=== PATIENT | male | born 1950 | race Caucasian/White ===

== ENCOUNTER 2024-12-26 13:08 | Outpatient (CLI) | payer MEDICARE, SELFPAY ==
--- OUTSIDE RECORDS SUMMARY | 2024-12-26 13:11 | XMS_ITS | Clinical Summary ---
Author Organization [facility] Address [address] [place] [address] Care Team Providers Care Strawhat Inspector And Packer Name Role Phone Sudhir Frazier MD Primary Care Provider + Allergies No known active allergies Medications methylPREDNISolone (MEDROL) 4 mg tablet Take 4 mg by mouth daily as needed Active atorvastatin (LIPITOR) 40 mg tablet Take 40 mg by mouth daily Active celecoxib (CeleBREX) 200 mg capsule Take 200 mg by mouth 2 (two) times a day Active traMADol (ULTRAM) 50 mg tablet Take 50 mg by mouth every 6 (six) hours as needed for pain Active carvedilol (COREG) 25 mg tablet Take 25 mg by mouth 2 (two) times a day with meals Active glimepiride (AMARYL) 4 mg tabletIndications: type 2 diabetes mellitus Take 4 mg by mouth 2 (two) times a day before breakfast and dinner Active losartan (COZAAR) 50 mg tablet Take 50 mg by mouth daily Active isosorbide mononitrate ER (IMDUR) 30 mg 24 hr tablet Take 30 mg by mouth nightly Active metFORMIN (GLUCOPHAGE) 500 mg tablet Take 500 mg by mouth 2 (two) times a day with meals Active Ozempic 0.25 mg or 0.5 mg(2 mg/1.5 mL) pen injector Inject 0.5 mg under the skin once a week Tuesday08/29/19 21 Active ergocalciferol (VITAMIN D) 50,000 unit capsule Take 50,000 Units by mouth once a week Tuesday10/09/19 21 Active vitamin E (vitamin E) 400 unit capsule Take 400 Units by mouth daily Active docosahexaenoic acid/epa (FISH OIL ORAL)Indications:f or omega-3's Take 1,200 mg by mouth 2 (two) times a day Active FIBER, DEXTRIN, ORAL Take 2 tablets by mouth 2 (two) times a day Active HYDROcodone-acetam inophen (NORCO) 5-325 mg per tabletIndications: Pain Take 1-2 tablets every 4-6 hours as needed for pain 50 tablet 10/31/19 21 Active Additional Information Patient not taking.Reported on 01/29/2021 cyclobenzaprine (FLEXERIL) 10 mg tablet Take 1 tablet (10 mg total) by mouth 3 (three) times a day as needed for muscle spasms 40 tablet 10/31/19 21 Active Additional Information Patient not taking.Reported on 01/29/2021 vitamins-lipotropi cs tabletIndications: ear ringing Take 1,000 mg by mouth 2 (two) times a day. Indications: ear ringing Active docusate sodium (COLACE) 250 mg capsuleIndications :constipation Take 250 mg by mouth daily. Take daily with narcotic. Indications: constipation Active aspirin 325 mg tabletIndications: prevention of thrombosis Take 325 mg by mouth 2 (two) times a day. Indications: prevention of thrombosis Active acetaminophen (Tylenol Extra Strength) 500 mg tabletIndications: Pain Take 500 mg by mouth every 6 (six) hours as needed for pain. Indications: pain Active silver sulfadiazine (SILVADENE, SSD) 1 % cream Apply topically daily 85 g 12/16/19 21 Active gauze bandage 4 X 4 sponge Apply 1 application topically daily 50 each 12/16/19 21 Active meclizine (ANTIVERT) 25 mg tablet TAKE 2 TABLETS BY MOUTH EVERY 12 HOURS NEEDED FOR VERTIGO 01/25/20 21 Active ondansetron ODT (ZOFRAN-ODT) 4 mg disintegrating tablet DISSOLVE 1 TABLET ON THE TONGUE EVERY 6 TO 8 HOURS NEEDED FOR NAUSEA OR VOMITING 01/25/20 21 Active valACYclovir (VALTREX) 1 gram tablet Take 1 tablet (1,000 mg total) by mouth 3 (three) times a day 21 tablet 07/10/20 22 Active amoxicillin (AMOXIL) 500 mg tablet/capsuleIndi cations:Prophylaxi s, Medical Take 4 tablet/capsule (2,000 mg total) by mouth once as needed (take 1 hour prior to dental procedure) for up to 1 dose 4 tablet/caps ule 02/03/20 23 Active acetaminophen-code ine (TYLENOL with CODEINE #4) 300-60 mg per tabletIndications: Strain of calf muscle, left, initial encounter,Osteoart hritis of left knee, unspecified osteoarthritis type Take 1 tablet by mouth every 6 (six) hours as needed for pain Take 1/2-1 tablet every 6-8 hours with food p.r.n. pain. Collaborating physician Reji Crawford MD 20 tablet 06/12/20 24 Active diclofenac sodium (VOLTAREN) 1 % gelIndications:Str ain of calf muscle, left, initial encounter,Osteoart hritis of left knee, unspecified osteoarthritis type Apply 2-4 g topically 4 (four) times a day Massage into area of maximal intensity pain 3-4 times daily as directed. Collaborating physician Reji Crawford MD 200 g 1 06/12/20 24 Active Active Problems Problem Noted Date Diagnosed Date Strain of calf muscle 06/12/2024 Osteoarthritis of left knee 06/12/2024 Hypertension 11/12/2020 Arthritis 10/28/2020 Primary osteoarthritis of knees, bilateral 10/20 Screening for malignant neoplasm of colon 2018 Overview (07/30/2019): Added automatically from request for surgery [id number] Cardiovascular symptoms 03/14/2014 Diabetes mellitus, type II 03/14/2014 Overview (11/12/2020): Dx updated per 2018 IMO Load Hypercholesterolemia 03/14/2014 Dyspnea on exertion 03/14/2014 Arteriosclerosis of coronary artery 10/19/2012 Morbid obesity 10/19/2012 Angina at rest 08/30/2012 Diabetic polyneuropathy 04/12/2012 Overview (11/12/2020): Dx updated per 2018 IMO Load Ingrowing nail 04/12/2012 Encounters Date Type Department Care Team Description 11/02/2024 [facility] E[facility] [address] [facility] [address] [place] [address] [place] [address] G[place]iola, Paula, [place] from Last 3 Months Immunizations Immunization Administration Dates Next Due PPD TEST 10/22/2022 Surgical History Surgery Date Site/Laterality Comments COLONOSCOPY 03/08/2010 - 04/07/2010 LUMBAR DISCECTOMY CATARACT EXTRACTION W/ INTRAOCULAR LENS IMPLANT Bilateral JOINT REPLACEMENT KNEE SURGERY 10/28/2020 Right Right total Knee Medical History Medical History Date Comments Coronary artery disease Hypertension Type 2 diabetes mellitus (HCC) Arthritis Sleep apnea Tachycardia Family History Medical History Relation Name Comments Heart disease Father Cancer Mother Relation Name Status Comments Father Mother Social History Tobacco Use Types Packs/Day Years Used Date Smoking Tobacco: Never Smokeless Tobacco: Never Social Connection and Isolat ion Panel [NHANES] Answer Date Recorded In a typical week, how many times do you talk on the phone with family, friends, or neighbors? More than three times a week 10/29/2020 How often do you get togethe r with friends or relatives? More than three times a week 10/29/2020 How often do you attend chur or jainism services? More than 4 times per year 10/29/2020 Do you belong to any clubs o r organizations such as rastafarian groups, unions, fraternal or athletic groups, or school groups? No 10/29/2020 How often do you attend meet ings of the clubs or organizations you belong to? Never 10/29/2020 Are you , , di vorced, , never , or living with a partner? 10/29/2020 AUDIT-C Answer Date Recorded Q1: How often do you have a drink containing alc ohol? Monthly or less 10/28/2020 Q2: How many drinks containi ng alcohol do you have on a typical day when you are drinking? 1 or 2 10/28/2020 Q3: How often do you have si x or more drinks on one occasion? Never 10/28/2020 Overall Financial Resource Strain (CARDIA) Answe r Date Recorded How hard is it for you to pa y for the very basics like food, housing, medical care, and heating? Not hard at all 10/29/2020 Hunger Vital Sign Answer Date Recorded Within the past 12 months, y ou worried that your food would run out before you got the money to buy more. Never true 10/30/19 21 Within the past 12 months, t he food you bought just didn't last and you didn't have money to get more. Never true 10/29/2020 PRAPARE - Transportation Answer Date Re corded In the past 12 months, has l ack of transportation kept you from medical appointments or from getting medications? No 10/07 In the past 12 months, has l ack of transportation kept you from meetings, work, or from getting things needed for daily living? No 10/29/2020 Housing Stability Vital Sign Answer Javier e Recorded In the last 12 months, was t here a time when you were not able to pay the mortgage or rent on time? No 10/29/2020 Number of Places Lived in the Last Year Not on f ile 10/29/2020 In the last 12 months, was t here a time when you did not have a steady place to sleep or slept in a long-term (including now)? No 10/29/2020 Personal Safety Answer Date Recorded Have you ever been in or are you currently in a harmful physical or emotional relationship or is someone making you feel afraid or unsafe? Denies 06/12/2024 Sex and Gender Information Value Date Recorded Sex Assigned at Not on file Legal Sex Male 9:09 AM RECEPTION MANAGER Gender Identity Male 10/17/2020 4:40 PM RECEPTION MANAGER Sexual Orientation Not on file Obstetrics History Last Filed Vital Signs Vital Sign Reading Time Taken Comments Blood Pressure 148/66 06/12/2024 11:00 AM RECEPTION MANAGER Pulse 65 06/12/2024 11:00 AM RECEPTION MANAGER Temperature 36.3 C (97.4 F) 06/12/2024 11:00 AM RECEPTION MANAGER Respiratory Rate 18 06/12/2024 11:00 AM RECEPTION MANAGER Oxygen Saturation 98% 06/12/2024 11:00 AM RECEPTION MANAGER Inhaled Oxygen Concentration - - Weight 113.4 kg (250 lb) 06/12/2024 11:00 AM RECEPTION MANAGER Height 190.5 cm (6' 3 ) 06/12/2024 11:00 AM RECEPTION MANAGER Body Mass Index 31.25 06/12/2024 11:00 AM RECEPTION MANAGER Plan of Treatment Health Maintenance Due Date Last Done Comments Albumin Creatinine Ratio, Urine 1950 Depression Screening 1950 Hepatitis C Screening 1950 Dilated Eye Exam 1950 Foot Exam 1950 Lipid Panel 1950 DTaP/Tdap/Td Vaccine (1 - Tdap) 1961 Hepatitis B Screening 1968 Zoster Vaccine (1 of 2) 2000 Well Visit 65+ 2015 Pneumococcal vaccine 65+ (2 of 2 - PCV) 04/30/2019 04/30/2018 Hemoglobin A1C 04/24/2021 10/22/2020 eGFR 10/22/2021 10/22/2020 Fall Risk Assessment 10/30/2021 10/30/2020 Influenza Vaccine (#1) 2024 0, 05/30/2019, 04/30/2018, Additional history exists Colon Cancer Screening-Colonoscopy 08/17/2029 08/17/2019 Colon Cancer Screening-CT Colonography Discontinued 08/17/2019 Colon Cancer Screening-DNA Stool Discontinued 08/17/19 Colon Cancer Screening-FIT Discontinued 08/17/2019 Colon Cancer Screening-Sigmoidoscopy Discontinued 08/17/2019 Medical Devices Implanted Type Area Multi Operation Machine Operator Device Identifier Shelf Expiration Date Model / Serial / Lot [employer] [id number] [place] R High Viscosity Cement 40gm Bone Green - [id number] Implanted:Qty: 2 on 10/28/2020 by Stanton Multani Jr., MD at [facility] Right: Knee [employer] [id number] 11/05/2022 [id number] / / [id number] [employer] [id number] Attune 5mm Cruciate Retaining Fix Bearing Knee 6 Insert Tibial - [id number] Implanted:Qty: 1 on 10/28/2020 by Stanton Multani Jr., MD at [facility] Right: Knee [employer] [id number] 10/05/2022 [id number] / / [id number] [employer] [id number] Attune 38mm Cemented Medialize Knee Dome Patellar Aox Sterile - [id number] Implanted:Qty: 1 on 10/28/2020 by Stanton Multani Jr., MD at [facility] Right: Knee [employer] [id number] 03/07/2025 [id number] / / [id number] [employer] [id number] Attune Cruciate Retain Cementless Knee Right 6 Component Femoral - [id number] Implanted:Qty: 1 on 10/28/2020 by Stanton Multani Jr., MD at [facility] Right: Knee [employer] [id number] 06/07/2029 [id number] / / [id number] [employer] [id number] Attune S+ Cement Fix Bearing Knee 7 Baseplate Tibial - [id number] Implanted:Qty: 1 on 10/28/2020 by Stanton Multani Jr., MD at [facility] Right: Knee [employer] [id number] 02/05/2028 [id number] / / [id number] Procedures Procedure Name Priority Date/Time Associated Diagnosis Comments EGFR Routine 10/22/2020 11:29 AM CDT Primary osteoarthritis of knees, bilateral HEMOGLOBIN A1C Routine 10/22/2020 11:29 AM CDT Preop testing COLONOSCOPY 08/17/2019 8:27 AM RECEPTION MANAGER from Last 3 Months or Most Recently Relevant to Health Maintenance Results * eGFR (10/22/2020 11:29 AM CDT) eGFR 98 mL/min/1.7 3 m2 MARIAH EMANUEL Comment: Interpretive Data Reference Interval Normal >/= 90 mL/min/1.73m2 Mildly decreased* 60 - 89 mL/min/1.73m2 Mildly to moderately decreased 45 - 59 mL/min/1.73m2 Moderately to severely decreased 30 - 44 mL/min/1.73m2 Severely decreased 15 - 29 mL/min/1.73m2 Kidney Failure < 15 mL/min/1.73m2 *Relative to young adult level Estimated glomerular filtration rate is determined by the CKD-EPI equation recommended by the National Kidney Foundation (KDIGO 2012 Clinical Practice Guideline for the Evaluation and Management of Chronic Kidney Disease. Kidney Intnl Suppl Aug 2012;3:1). The CKD-EPI equation should not be used for patients with unstable renal function and has not been validated in children and those over 70. Current interpretive data was last reviewed 2020 Blood specimen (specimen) 10/22/2020 11:29 AM CDT 10/22/2020 11:46 AM CDT us Leroy Ritter MD LAB BLOOD ORDERABLES Final Result Performing Organization Address [facility] Co de Phone Number MARIAH EMANUEL [phone] [address] [facility] [place] [address] * (ABNORMAL) Hemoglobin A1c (10/22/2020 11:29 AM CDT) Hgb A1C 6.2(H) 4.0 - 5.6 % MARIAH EMANUEL Estimated Average Glucose 131 mg/dL MARIAH EMANUEL Comment: The ADA recommends reporting an estimated Average Glucose (eAG) with all Hemoglobin A1c results using the equation derived from a study of 507 normal and diabetic adults. Minority populations were underrepresented and children were not included. (Diabetes Care 31:3666-0374, 2008). The eAG is not equivalent to a fasting glucose. Blood specimen (specimen) 10/22/2020 11:29 AM CDT 10/22/2020 11:37 AM CDT us Stanton Multani Jr., MD LAB BLOOD ORDERABLE S Final Result Performing Organization Address [facility] Co de Phone Number MARIAH EMANUEL [phone] [address] [facility] [place] [address] * COLONOSCOPY (08/17/2019 8:27 AM RECEPTION MANAGER) Anatomical Region Laterality Modality Other Narrative Procedure Note Reji Bradley MD - 08/17/2019 8:27 AM CST [facility] Patient Name: Julian Schuler Procedure Date: 08/17/2019 8:27 AM Date of : 1950 Admit Type: Outpatient Age: 69 Gender: Male Attending MD: Reji Bradley M.D. [facility] 2 Note Status: Finalized Patient Profile: Refer to note in patient chart for documentation of history and physical. Procedure: Colonoscopy Indications: Screening for colorectal malignant neoplasm, Last colonoscopy: March 2010 Referring MD: Sudhir Frazier M.D. Providers: Reji Bradley M.D. Impression: - Hemorrhoids found on perianal exam. - One 5 mm polyp in the rectum, removed with a hot biopsy forceps. Resected and retrieved. - Two 5 to 9 mm polyps in the sigmoid colon, removed with a hot biopsy forceps. Resected and retrieved. - Diverticulosis in the sigmoid colon. - The examination was otherwise normal. Recommendation: - Discharge patient to home. - Resume previous diet. - Continue present medications. - Await pathology results. - Repeat colonoscopy in 5 years for surveillance. - Return to primary care physician as previously scheduled. Medicines: Propofol per Anesthesia Complications: No immediate complications. Estimated Blood Loss: Estimated blood loss: none. Procedure: Pre-Anesthesia Assessment: - This assessment was completed [Time of Assessment] prior to the administration of sedation. The benefits, risks and alternatives of theprocedure and sedation were discussed and informed consent was obtained. All questions were answered. Please referto the signed informed consent document in the medical record. Bowel prep was administered using a single dose. The bowel preparation used was Miralax. Thebowel preparation used was bisacodyl tablets. The scopewas passed under direct vision. The [id number] was introduced through the anus andadvanced to the the cecum, identified by appendiceal orificeand ileocecal valve. The colonoscopy was performedwithout difficulty. The patient tolerated the procedurewell. The quality of the bowel preparation was good. Findings: Hemorrhoids were found on perianal exam. A 5 mm polyp was found in the rectum. The polyp was sessile. Thepolyp was removed with a hot biopsy forceps. Resection and retrieval were complete. Verification of patient identification for the specimen was done by the physician and nurse using the patient's name and birthdate. Estimated blood loss was minimal. Two sessile polyps were found in the sigmoid colon. The polyps were 5to 9 mm in size. These polyps were removed with a hot biopsy forceps. Resection and retrieval were complete. Verification of patient identification for the specimen was done by the physician and nurse using the patient's name and date. Estimated blood loss was minimal. Multiple small-mouthed diverticula were found in the sigmoid colon. The exam was otherwise without abnormality. Electronically signed by Reji Bradley M.D. Reji Bradley M.D. 08/17/2019 9:34:24 AM Number of Addenda: 0 Note Initiated On: 08/17/2019 8:27 AM Procedure Code(s): --- Professional --- 17881, Colonoscopy, flexible; with removal of tumor(s), polyp(s), or other lesion(s) by hot biopsy forceps Diagnosis Code(s): --- Professional --- K57.30, Diverticulosis of large intestine without perforation orabscess without bleeding D12.5, Benign neoplasm of sigmoid colon K62.1, Rectal polyp K64.9, Unspecified hemorrhoids Z12.11, Encounter for screening for malignant neoplasm of colon CPT copyright 2017 [employer]. All rights reserved. The codes documented in this report are preliminary and upon pool lifeguard reviewmay be revised to meet current compliance requirements. Recognized by the [employer] for promoting quality in endoscopy us Reji Bradley MD ENDOSCOPY PROCEDURES Final Re sult from Last 3 Months or Most Recently Relevant to Health Maintenance Insurance MEDICARE COMMERCIAL GENERIC MEDICARE COMMERCIAL GENERIC MEDICARE MEDICARE [facility] Advance Directives For more information, please contact: [phone] * Full Code (Latest Code Status on File) Date Activated Date Inactivated Comments 10/28/2020 3:22 PM 10/30/2020 8:05 PM * Full Code Date Activated Date Inactivated Comments 08/17/2019 7:57 AM 08/17/2019 2:34 PM * Full Code Date Activated Date Inactivated Comments 08/17/2019 7:57 AM 08/17/2019 7:57 AM Care Teams Strawhat Inspector And Packer Relationship Specialty [place] [address] [facility] [place] [address] PCP - General 10/08/16
--- OUTSIDE RECORDS SUMMARY | 2024-12-26 13:11 | XMS_ITS | Referral Summary ---
Author Organization [facility] Address [address] [place] [address] Care Team Providers Care Band Lining Bander Name Role Phone Sudhir Frazier MD Primary Care Provider + Encounters Date Type Department Care Team Description 11/02/2024 Telephone [facility]) - [facility] ENT [address] [facility] [address] [place] [address] [place] [address] Paula Gaxiola MS from Last 3 Months Allergies No known active allergies Medications methylPREDNISolone [...] needed for muscle spasms 40 tablet 10/31/19 Active Additional Information Patient not taking.Reported on [...] (07/30/2019): Added automatically from request for surgery [id number] Cardiovascular symptoms 03/14/2014 Diabetes mellitus, type II 03/14/2014 Overview (11/12/2020): Dx updated per 2018 IMO Load Hypercholesterolemia 03/14/2014 Dyspnea on exertion 03/14/2014 Arteriosclerosis of coronary artery 10/19/2012 Morbid obesity 10/19/2012 Angina at rest 08/30/2012 Diabetic polyneuropathy 04/12/2012 Overview (11/12/2020): Dx updated per 2018 IMO Load Ingrowing nail 04/12/2012 Immunizations Immunization Administration Dates Next Due PPD TEST 10/22/2022 Social History Tobacco Use Types Packs/Day Years [...] 10/29/2020 How often do you attend chur ch or samaritan services? More than 4 times per year 10/29/2020 Do you belong to any clubs o r organizations such as hinduism groups, unions, fraternal or athletic groups, or [...] place to sleep or slept in a care home (including now)? No 10/29/2020 Personal Safety Answer Date Recorded Have you ever been in or are you currently in a harmful physical or emotional relationship or is someone making you feel afraid or unsafe? Denies 06/12/2024 Sex and Gender Information Value Date Recorded Sex Assigned at Not on file Legal Sex Male 9:09 AM ROLL PLUGGER Gender Identity Male 10/17/2020 4:40 PM ROLL PLUGGER Sexual Orientation Not on file Last Filed Vital Signs Vital Sign Reading Time Taken Comments Blood Pressure 148/66 06/12/2024 11:00 AM ROLL PLUGGER Pulse 65 06/12/2024 11:00 AM ROLL PLUGGER Temperature 36.3 C (97.4 F) 06/12/2024 11:00 AM ROLL PLUGGER Respiratory Rate 18 06/12/2024 11:00 AM ROLL PLUGGER Oxygen Saturation 98% 06/12/2024 11:00 AM ROLL PLUGGER Inhaled Oxygen Concentration - - Weight 113.4 kg (250 lb) 06/12/2024 11:00 AM ROLL PLUGGER Height 190.5 cm (6' 3 ) 06/12/2024 11:00 AM ROLL PLUGGER Body Mass Index 31.25 06/12/2024 11:00 AM ROLL PLUGGER Plan of Treatment Not on file Medical Devices Implanted Type Area Director Of Diversity And Inclusion Device Identifier Shelf Expiration Date Model / Serial / Lot [employer] [id number] [place] R High Viscosity Cement 40gm Bone Green - [id number] Implanted:Qty: 2 on 10/28/2020 by Stanton Multani Jr., MD at [facility] Right: Knee [employer] [id number] 11/05/2022 [id number] / / [id number] [employer] [id number] Attune 5mm Cruciate Retaining Fix Bearing Knee 6 Insert Tibial - [id number] Implanted:Qty: 1 on 10/28/2020 by Stanton Multani Jr., MD at [facility] Right: Knee [employer] [id number] 10/05/2022 [id number] / / [id number] [employer] [id number] Attune 38mm Cemented Medialize Knee Dome Patellar Aox Sterile - [id number] Implanted:Qty: 1 on 10/28/2020 by Stanton Multani Jr., MD at [facility] Right: Knee [employer] [id number] 03/07/2025 [id number] / / [id number] [employer] [id number] Attune Cruciate Retain Cementless Knee Right 6 Component Femoral - [id number] Implanted:Qty: 1 on 10/28/2020 by Stnaton Multani Jr., MD at [facility] Right: Knee [employer] [id number] 06/07/2029 [id number] / / [id number] [employer] [id number] Attune S+ Cement Fix Bearing Knee 7 Baseplate Tibial - [id number] Implanted:Qty: 1 on 10/28/2020 by Stanton Multani Jr., MD at [facility] Right: Knee [employer] [id number] 02/05/2028 [id number] / / [id number] Procedures Procedure Name Priority Date/Time Associated Diagnosis Comments EGFR Routine 10/22/2020 11:29 AM CDT Primary osteoarthritis of knees, bilateral HEMOGLOBIN A1C Routine 10/22/2020 11:29 AM CDT Preop testing COLONOSCOPY 08/17/2019 8:27 AM ROLL PLUGGER from Last 3 Months or Most Recently [...] BLOOD ORDERABLES Final Result Performing Organization Address [facility] Co de Phone Number MARIAH ADELFO [address] [place] [address] * (ABNORMAL) Hemoglobin A1c (10/22/2020 11:29 AM CDT) Hgb A1C 6.2(H) 4.0 - 5.6 % MARIAH EMANUEL Estimated Average Glucose 131 mg/dL MARIAH EMANUEL Comment: The ADA recommends reporting an estimated Average Glucose (eAG) with all Hemoglobin A1c results using the equation derived from a study of 507 normal and diabetic adults. Minority populations were underrepresented and children were not included. (Diabetes Care 31:2789-1746, 2008). The eAG is not equivalent to a fasting glucose. Blood specimen (specimen) 10/22/2020 11:29 AM CDT 10/22/2020 11:37 AM CDT us Stanton Multani Jr., MD LAB BLOOD ORDERABLE S Final Result Performing Organization Address [facility] Co de Phone Number MARIAH EMANUEL [address] [facility] [place] [address] * COLONOSCOPY (08/17/2019 8:27 AM ROLL PLUGGER) Anatomical Region Laterality Modality Other Narrative Procedure Note Reji Bradley MD - 08/17/2019 8:27 AM CST [facility] Patient Name: Julian Schuler Procedure Date: 08/17/2019 8:27 AM Date of : 1950 Admit Type: Outpatient Age: 69 Gender: Male Attending MD: Reji Bradley M.D. Room: [facility] ENDOSCOPY ROOM 2 Note Status: Finalized Patient [...] The scopewas passed under direct vision. The [id number] was introduced through the anus andadvanced to [...] 8:27 AM Procedure Code(s): --- Professional --- 64472, Colonoscopy, flexible; with removal of tumor(s), polyp(s), or other lesion(s) by hot biopsy forceps Diagnosis Code(s): --- Professional --- K57.30, Diverticulosis of large intestine without perforation orabscess without bleeding D12.5, Benign neoplasm of sigmoid colon K62.1, Rectal polyp K64.9, Unspecified hemorrhoids Z12.11, Encounter for screening for malignant neoplasm of colon CPT copyright 2017 [employer]. All rights reserved. The codes documented in this report are preliminary and upon paper counter reviewmay be revised to meet current compliance requirements. Recognized by the [employer] for promoting quality in endoscopy Reji Bradley MD ENDOSCOPY PROCEDURES Final Re sult from Last 3 Months or Most Recently Relevant to Health Maintenance Insurance MEDICARE COMMERCIAL [facility] MEDICARE COMMERCIAL GENERIC COMMERCIAL GENERIC MEDICARE MEDICARE [employer] Advance Directives For more information, please contact: [phone] * Full Code (Latest Code Status on File) Date Activated Date Inactivated Comments 10/28/2020 3:22 PM 10/30/2020 8:05 PM * Full Code Date Activated Date Inactivated Comments 08/17/2019 7:57 AM 08/17/2019 2:34 PM * Full Code Date Activated Date Inactivated Comments 08/17/2019 7:57 AM 08/17/2019 7:57 AM Care Teams Band Lining Bander Relationship Specialty [place] [address] [place] [address] PCP - General 10/08/16
--- OUTSIDE RECORDS SUMMARY | 2024-12-26 13:11 | XMS_ITS | Patient Health Record ---
Author Organization [facility] Address [address] [address] Care Team Providers Care Packing Machine Inspector Name Role Phone SHENG DOWLING Unavailable [phone] Reason For Referral No Information Plan Of Treatment No Information Insurance Providers Payer Name Payer Address Payer Phone Subscriber Number Group Number Insured Name Patient Relationship to Insured Coverage Start Date Coverage End Date [facility] [id number] [place], [place] [id number] Matt Schuler Self - patient is the insured 0
--- OUTSIDE RECORDS SUMMARY | 2024-12-26 13:11 | XMS_ITS | CONTINUITY OF CARE DOCUMENT ---
Author Name manuel, manuel Address Unknown Organization [facility] Address [address] [place] [address] Phone [phone] Care Team Providers Care Life Insurance Sales Agent Name Role Phone Katelyn EASTMAN, Angus Unavailable [phone] AIYANA SOTO MD Unavailable [phone] AIYANA SOTO MD Unavailable PROBLEMS Condition Status Date Provider Notes Family History Coronary Hear t Disease female < 65: active ? Angus Zepeda MD Family History Coronary Hear t Disease female < 65: active ? Angus Zepeda MD Family History Coronary Hear t Disease male < 55: active ? Angus Zepeda MD Other symptoms involving car diovascular system active Angus Zepeda MD Shortness of breath active Angus Zepeda MD Dyspnea on exertion active Angus Zepeda MD CAD active Angus Zepeda MD Diabetes mellitus active Angus Zepeda MD Hyperlipidemia active Angus Zepeda MD Diabetes, Type 2 active ? Angus Zepeda MD Hyperlipidemia active ? Angus Zepeda MD Hypertension active ? Angus Zepeda MD Coronary Heart Disease active Angus Zepeda MD ENCOUNTERS Date Type Provider Location Encounter Diag nosis - In-person encounter Office Visit Angus Zepeda MD [facility] - In-person encounter Office Visit Angus Zepeda MD [facility] - In-person encounter Office Visit Angus Zepeda MD [facility] HyperlipidemiaCoronary Heart Disease - In-person encounter Office Visit Angus Zepeda MD [facility] - In-person encounter Office Visit Angus Zepeda MD [facility] - In-person encounter Office Visit Angus Zepeda MD [place] [facility] - In-person encounter Office Visit Angus Zepeda MD [facility] Family History Coronary Heart Disease female < 65:Family History Coronary Heart Disease female < 65:Family History Coronary Heart Disease male < 55:Other symptoms involving cardiovascular systemShortness of breathDyspnea on exertionCADDiabetes mellitusHyperlipidemiaDiabet es, Type 2HyperlipidemiaHypertension VITAL SIGNS Date Observation Value Provider Body Mass Index (Ratio) 34.04 kg/m2 Mark Zepeda MD blood pressure, cuff size regular yang Lewis blood pressure, diastolic 80 mm[Hg] Rodrigue Lewis blood pressure, systolic 136 mm[Hg] Luis Lewis oxygen saturation, oximetry 97 % Amanda Lewis pulse rate 66 /min Amanda Clark [facility] weight E&M 258 [lb_av] Amanda Clark [facility] height E&M 73 [in_i] Amanda Clark [facility] Body Mass Index (Ratio) 37.07 kg/m2 Mark Zepeda MD blood pressure, diastolic 81 mm[Hg] An aki Castaneda blood pressure, systolic 168 mm[Hg] Ann Catsaneda oxygen saturation, oximetry 98 % Loni Castaneda pulse rate 79 /min Loni Castaneda weight E&M 281 [lb_av] Loni Castaneda blood pressure, cuff size large An aki Leonel height E&M 73 [in_i] Loni Leonel Body Mass Index (Ratio) 35.22 kg/m2 Mark Zepeda MD blood pressure, diastolic 87 mm[Hg] Tierra nkLogic blood pressure, systolic 163 mm[Hg] Lianna kLog blood pressure, diastolic 87 mm[Hg] Alena rogers [place] blood pressure, systolic 163 mm[Hg] Fernando rajan [place] oxygen saturation, oximetry 96 % Cristin Calderon pulse rate 84 /min Cristin cage weight E&M 267 [lb_av] Cristin cage respiratory rate E&M 16 /min Amanda ricardo [place] blood pressure, cuff size large Alena rogers Calderon height E&M 73 [in_i] Cristin cage Body Mass Index (Ratio) 37.33 kg/m2 Mark Zepeda MD oxygen saturation, oximetry 98 % Chastity Vidhi blood pressure, diastolic 98 mm[Hg] Ch astity Vidhi blood pressure, systolic 138 mm[Hg] Leigha stity Vidhi pulse rate 76 /min Chastity Vidhi respiratory rate E&M 16 /min Chastit y Vidhi weight E&M 283 [lb_av] Chastity Vidhi height E&M 73 [in_i] Chastity Vidhi blood pressure, diastolic 82 mm[Hg] Me kingsley Rohith blood pressure, systolic 143 mm[Hg] Lisseth silviano Rohith pulse rate 70 /min Sasha Rohith oxygen saturation, oximetry 97 % Sasha Rohith respiratory rate E&M 18 /min Sasha Rohith Body Mass Index (Ratio) 37.20 kg/m2 Paula ssa Rohith weight E&M 282 [lb_av] Sasha Newberry Body Mass Index (Ratio) 37.20 kg/m2 Anea manjit Pedrito blood pressure, diastolic 78 mm[Hg] An eatris Perdito blood pressure, systolic 142 mm[Hg] Ane atriben Major pulse rate 70 /min Aneatris Pedrito oxygen saturation, oximetry 98 % Aneatris Pedrito respiratory rate E&M 18 /min Aneatri s [facility] weight E&M 282 [lb_av] Aneatris Pedrito Body Mass Index (Ratio) 37.07 kg/m2 Ashl ee Daniel blood pressure, diastolic 74 mm[Hg] As hlee Daniel blood pressure, systolic 126 mm[Hg] Aries tiffanie Daniel pulse rate 72 /min Maureen Daniel oxygen saturation, oximetry 98 % Maureentiffanie Sanchez respiratory rate E&M 16 /min Maureen Daniel weight E&M 281 [lb_av] Maureen Daniel height E&M 73 [in_i] Maureen Sanchez ALLERGIES No Known Drug Allergies RESULTS Date Observation Value Provider Reference Range Interpretation Location platelet count 210 10*3[facility] Samuel hematocrit, blood 41.5 % [facility] triglyceride, serum, fasting 144 mg/dL [facility] HDL cholesterol, serum 40 mg/dL [facility] cholesterol/HDL ratio, serum 3.3 [facility] lipoprotein, beta, serum, point, quantitative, calculated 62 mg/dL [facility] cholesterol, serum 131 mg/dL [facility] thyroid stimulating hormone, serum 1.19 u[IU]/mL [facility] alanine aminotransferase (SGPT), serum 22 1/L [facility] aspartate aminotransferase (SGOT), serum 15 1/L Bev Baker creatinine, serum 1.00 mg/dL Bev Baker potassium, serum 4.3 mmol/L Bev Baker sodium, serum 142 mmol/L Bev Baker HISTORY OF MEDICATION USE Medication Status Instructions Dates Provider Indications Com ments Ozempic 0.25 mg or 0.5 mg(2 mg/1.5 mL) pen injector active Angus Zepeda MD glimepiride 4 mg tablet active Take 1 tablet by mouth once a day Fei Anderson DNP,SPECIAL EDUCATION SCIENCE TEACHER #180, 90 days supply, Prescribed by AIYANA SOTO, Filled 01/25/2020 celecoxib 200 mg capsule active 1 tablet twice a day Leighastity Vidhi #180, 90 days supply, Filled 03/04/2020 tramadol 50 mg tablet active as needed Leighastity Vidhi #56, 7 days supply, Filled 01/28/2020 losartan 50 mg tablet active 1 once a day Cristin Calderon atorvastatin 40 mg tablet active 1 once a day Cristin Calderon metformin 500 mg tablet active 0.5 twice a day Cristin Calderon [employer] F[employer] CAPSULE active once a day Amanda Calderon Fish Oil 300-1,000 mg capsule,delayed release(DR/EC) active once a day Cristin Calderon TRIAMCINOLONE ACETONIDE 0.1 % EXTERNAL CREAM completed as needed - Carlyn Mosher cholecalciferol (vitamin D3) 25 mcg (1,000 unit) capsule active 2 once a day Cristin Calderon IMDUR 30 MG ORAL TABLET EXTENDED RELEASE 24 HOUR active 1 every night Cristin Calderon carvedilol 25 mg tablet active twice a day Cristin Calderon aspirin 81 mg tablet,delayed release (DR/EC) completed 1 once a day - Cristin Calderon SOCIAL HISTORY Date Observation Value Provider alcohol use no Fei ARZA P,SPECIAL EDUCATION SCIENCE TEACHER passive cigarette sm umer exposure no Fei Anderson DNP,SPECIAL EDUCATION SCIENCE TEACHER smoking status Never smoker Fei Anderson DNP,[facility] alcohol use no Loni Leonel passive cigarette sm umer exposure no Loni Leonel smoking status Never smoker Loni Leonel social history E&M Marital Statu s: Jane boles: 4 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 Angus Zepeda MD seatbelt usage 100 % Cristin Stoll and passive cigarette sm umer exposure no Cristin Stolland smoking status Never smoker Cristin Stoll and social history E&M Marital Statu s: Jane obles: 4 O ccupation: Retired Smoking History: P jatin has never smoked. Angus Zepeda MD social history reviewed E&M revi ewed - no changes required Angus Zepeda MD seatbelt usage 100 % Chastity Hogu e passive cigarette sm umer exposure no Leighastveronica Antonioue smoking status Never smoker Carlyn Antoniou ricardo passive cigarette sm umer exposure no Angus Zepeda MD social history reviewed E&M revi ewed - no changes required Angus Zepeda MD seatbelt usage 100 % Sasha Rohith alcohol use no Sasha Newberry smoking status Never smoker Sasha Newberry social history reviewed E&M revi ewed - no changes required Angus Zepeda MD seatbelt usage 100 % Angus Zepeda MD alcohol use no Angus Cage social history E&M Marital Statu s: Jane boles: 4 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 Angus Zepeda MD smoking status Never smoker Maureen Sanchez FUNCTIONAL STATUS Date Observation Value Provider HRA, CV Assess/Plan, Angina (inactive) Management Plan continue current therapy Fei Anderson DNP,SPECIAL EDUCATION SCIENCE TEACHER HRA, CV Assess/Plan, Angina (inactive) Management Plan continue current therapy Angus Zepeda MD FAMILY HISTORY Family Member Condition Father [place] male <55 Mother [place] female <65 Full Brother Family History Coron desmond Heart Disease male < 55: Maternal Grandmother Family History Bear nary Heart Disease female < 65: Maternal Grandfather Family History of C oronary Artery Disease: Mother Family History Coron desmond Heart Disease female < 65: Father Family History of Co ronary Artery Disease: INSURANCE PROVIDERS Payer name Policy type / Coverage type Tracy red alliance party ID [facility] Blue Shield X [id number] OR MEDICARE PART B Medicare [id number] ADVANCE DIRECTIVES Name Date DISCUSSED - NO DECISION MADE TREATMENT PLAN Date Name Performer [id number],SAngus MD [id number],S, Angus shukla MD [id number],S, Angus shukla MD [id number],S, Angus shukla MD [id number],SAngus MD [id number],W, Angus shukla MD Cardiology:BP contro lled at home. B P today: 136/80 P rior BP: 168/81 (08/03/2023) H is updated medication list for this problem includes: Losartan 50 Mg Tablet (Losartan) ..... 1 once a day Carvedilol 25 Mg Tablet (Carvedilol) ..... Twice a day [facility] Cardiology:WIll repe at lipid panel. H is updated medication list for this problem includes: Atorvastatin 40 Mg Tablet (Atorvastatin) ..... 1 once a day [facility] Cardiology:Dyspnea o n exertion improved with weight loss. Last echo shows LVEF 55%. [facility] Cardiology:No chest pain. Normal stress test in 2022. Fei Anderson [facility] Cardiology Angus Zepeda MD Cardiology Angus Zepeda MD Cardiology Angus Zepeda MD Cardiology:BP normal at home. Wi ll start RPM. Angus Ramadagayla EASTMAN Cardiology Angus Ramadan Cardiology Angus Ramadan Cardiology Angus Ramadan Cardiology Angus Ramadan Cardiology Angus Ramadan Cardiology Angus Ramadan Cardiology Angus Ramadan Cardiology Angus Ramadan Cardiology Angus Ramadan Cardiology Angus Ramadan Cardiology:BP is normal at home. Angus Ramadagayla EASTMAN Cardiology Angus Ramadan Cardiology Angus Ramadan Cardiology Angus Ramadan Cardiology Angus Ramadan Cardiology Angus Ramadan Cardiology Angus Ramadan Cardiology Angus Ramadan folllow up Angus Ramadan folllow up: H is updated medication list for this problem includes: Losartan Potassium 50 Mg Tabs (Losartan potassium) ..... 1 daily Carvedilol 25 Mg Tabs (Carvedilol) ..... Twice daily Aspirin Low Dose 81 Mg Tbec (Aspirin) ..... 1 daily Angus Zepeda MD folllow up: H is updated medication list for this problem includes: Losartan Potassium 50 Mg Tabs (Losartan potassium) ..... 1 daily Metformin Hcl 500 Mg Tabs (Metformin hcl) ..... 1/2 twice daily Aspirin Low Dose 81 Mg Tbec (Aspirin) ..... 1 daily Angus Diazadagayla EASTMAN folllow up: H is updated medication list for this problem includes: Atorvastatin Calcium 40 Mg Tabs (Atorvastatin calcium) ..... 1 daily Imdur 30 Mg [id number] (Isosorbide mononitrate) ..... 1 at night Carvedilol 25 Mg Tabs (Carvedilol) ..... Twice daily Aspirin Low Dose 81 Mg Tbec (Aspirin) ..... 1 daily Angus Zepeda MD f/u Angus Zepeda MD f/u Angus Zepeda MD f/u Angus Zepeda MD f/u Angus Zepeda MD Date Name LIPID PANEL RPM (remote patient monitoring) DLCO - 98960 FRC - 22021 FVC - 95148 Stress Regadenoson Complete Echo CT, Coronary Calcium Score Stress Regadenoson Complete Echo DLCO Order - 06304 FRC Order - [id number] FVC Order - [id number] Full PFT Complete Echo STR - Nuclear HISTORY OF PROCEDURES Procedure Date Procedure Name Provider Procedure Notes S tatus EKG Angus Zepeda MD complete d Spirometry Angus Zepeda MD complete d FVC / MVV with bronchodilator - 16387 Angus Zepeda MD completed FRC - 34057 Angus Zepeda MD complet ed SpO2 w/o 6min walk/titration Angus Zepeda MD completed SVC - 75885 Angus Zepeda MD complet ed DLCO - 70584 Angus Zepeda MD comple belgica EKG Angus Zepeda MD complete d Stress EKG Forest contreras MD completed Regadenoson, 4 units Bebeto Clay MD completed Cardiolite, 2 units Bebeto Clay MD completed SPECT Images Bebeto Clay MD com pleted CT- Coronary CA score Angus Zepeda MD completed EKG Angus Zepeda MD complete d EKG Angus Zepeda MD complete d SNOMED-CT: [id number] Current Medications Documented Angus Zepeda MD completed EKG Angus Zepeda MD complete d EKG Angus Zepeda MD complete d
--- OUTSIDE RECORDS SUMMARY | 2024-12-26 13:11 | XMS_ITS | Clinical Summary ---
Author Organization [facility] [employer] Address [address] [place] [address] Care Team Providers Care Critical Care Registered Nurse Name Role Phone Sudhir Gandhi MD Primary Care Provider [phone] [facility],non-owned Affiliates and Associated Physician Practices is amultiple site organization consisting of ambulatory clinics and hospital sitesin [place], [place], [place] and [place]. This disclosure is being madepursuant to the Care Everywhere program and may not contain all information available regarding this patient. Last updated 18.[facility] Allergies Active Allergy Reactions Criticality Noted Date Comments Cortisone Unknown High 04/12/2012 Pain all over and chest pain. Social History Tobacco Use Types Packs/Day Years Used Date Smoking Tobacco: Never Assessed Sex and Gender Information Value Date Recorded Sex Assigned at Not on file Legal Sex Male 1:38 PM PRODUCTION SUPPLY EQUIPMENT TENDER Gender Identity Not on file Sexual Orientation Not on file Plan of Treatment Health Maintenance Due Date Last Done Comments COLOGUARD (AGES 45-75) - COL ON CA SCREENING 1950 COLON MONITORING 1950 COLONOSCOPY - COLON CA SCREENING 1950 CT COLONOGRAPHY - COLON CA SCREENING 1950 Colorectal Cancer Screening 1950 FIT - COLON CA SCREENING 1950 FLEX SIG - COLON CA SCREENING 1950 LIPID TESTING 1950 HEPATITIS C SCREENING 05/13/1968 DTAP/TDAP/TD VACCINES (1 - Tdap) 1969 PNEUMOCOCCAL VACCINE 50+ (1 of 1 - PCV) 2000 ZOSTER VACCINE (1 of 2) 2000 COVID-19 VACCINE ( - 2023-2 5 season) 2024 DEPRESSION SCREENING 08/08/2024 INFLUENZA VACCINE (Season Ended) 2025 Respiratory Syncytial Virus (RSV) Vaccine Pt: or over 60 yrs (1 - 1-dose 75+ series) 2025 HEPATITIS B VACCINE Aged Out No longe r eligible based on patient's age to complete this topic HIB VACCINE Aged Out No longer eligi ble based on patient's age to complete this topic HPV VACCINE Aged Out No longer eligi ble based on patient's age to complete this topic MENINGOCOCCAL (Group B) VACC INE SHARED DECISION-MAKING Aged Out No longer eligibl e based on patient's age to complete this topic MENINGOCOCCAL GROUPS A/C/Y/W VACCINE Aged Out No longer eligible b ased on patient's age to complete this topic Care Teams Critical Care Registered Nurse Relationship Specialty [place] [address] [facility] [place] [address] PCP - General Internal Medicine 10/25/17
== END 2024-12-26 13:09 | disposition home or self-care (01) ==
LOC: ANHAUDASC 13:08
PROVIDERS: PCP Internal Medicine Geriatric Medicine; Visit Provider Otolaryngology
DX: J31.0 Chronic rhinitis (principal); H61.22 Impacted cerumen, left ear; H74.09 Tympanosclerosis, unspecified ear; H90.3 Sensorineural hearing loss, bilateral
CPT/HCPCS: 92557; 92567

== ENCOUNTER 2025-03-03 12:33 | Outpatient (CLI) | payer MEDICARE, SELFPAY ==
--- NOTE | ~2025-03-03 | MR_ITS ---
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 Sequences included sagittal and axi al T1-weighted FSE, axial diffusion-weighted FS EPI, axial 3D SWAN, axial T2-weighted FLAIR Propeller , axial T2-weighted Propeller, small pvata-vw-wqvk coronal FIESTA, small lkqdd-rh-rupn coronal T1-samy ghted FSE, and small ywyme-er-mcut axial T1-weighted SPGR. Postcontrast sequences included axial T1-w eighted FSE, small qbzft-df-hubv coronal T1-weighted FSE, and small wdgrk-vy-pxxo axial T1-weighted S PGR. Apparent diffusion coefficient (ADC) maps were created. COMPARISON: None. FINDINGS: There are no areas of restricted diffusion to suggest acute infarction. No intracranial hemorrhage or abnormal intracranial mass lesion. There are scattered areas of nonspecific increased T2-weighted si gnal intensity in the cerebral white matter, predominantly involving the deep and periventricular whi te matter. There are no intraparenchymal signal abnormalities seen on the other pulse sequences. Symm etric prominence of the sulci consistent with mild age-appropriate diffuse cerebral volume loss. The ventricles are symmetric and normal in size. There are no abnormal extra-axial fluid collections. Normal seventh/eighth cranial nerve complexes. No cerebellopontine angles masses. No evidence of ma stoid or middle ear fluid. Flow voids are seen in the cerebral arteries on the T2-weighted sequence s and contrast enhancement on the post contrast imaging consistent with their expected patency. Verte bral arteries are codominant. There is no hemodynamically significant stenosis in the vertebral, basi lar and internal carotid arteries. Bilateral P1 segments and bilateral posterior communicating arteri es are patent. The left P1 segment and the right posterior commuting artery are diminutive. 1-2 mm an eurysm at the confluence of the left P1 segment and left posterior communicating artery. Mild mucosal thickening bilateral ethmoid sinuses. Changes of bilateral intraocular lens replacement. Visualized orbits and soft tissues are unremarkable. There are no areas of abnormal enhancement on t he post contrast images. IMPRESSION: 1. Internal auditory canals are normal bilaterally with normal 7th and 8th cranial nerve complexes an d no cerebellopontine angle masses. 2. Normal aging brain with mild diffuse volume loss and mild nonspecific scattered white matter T2 hy perintensity which within normal limits for age and likely sequela of chronic small vessel ischemic d isease. 2. 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 Reviewed, dictated and finalized at location A. IMPRESSION: 1. Internal auditory canals are normal bilaterally with normal 7th and 8th cran ial nerve complexes and no cerebellopontine angle masses. 2. Normal aging brain with mild diffuse volume loss and mild nonspecific scatte red white matter T2 hyperintensity which within normal limits for age and likel y sequela of chronic small vessel ischemic disease. 2. 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
--- OUTSIDE RECORDS SUMMARY | 2025-03-03 12:36 | XMS_ITS | Clinical Summary ---
Author Organization [facility] Address [address] [place] [address] Care Team Providers Care Inventory Control/Shipping Receiving Name Role Phone Sudhir Frazier MD Primary [...] (07/30/2019): Added automatically from request for surgery [id number] Cardiovascular symptoms 03/14/2014 Diabetes mellitus, type II [...] How often do you attend chur or muslim services? More than 4 times per year 10/29/2020 Do you belong to any clubs o r organizations such as zoroastrian groups, unions, fraternal or athletic groups, or [...] place to sleep or slept in a skilled nursing (including now)? No 10/29/2020 Personal Safety Answer Date Recorded Have you ever been in or are you currently in a harmful physical or emotional relationship or is someone making you feel afraid or unsafe? Denies 06/12/2024 Sex and Gender Information Value Date Recorded Sex Assigned at Not on file Legal Sex Male 9:09 AM CURB ATTENDANT Gender Identity Male 10/17/2020 4:40 PM CURB ATTENDANT Sexual Orientation Not on file Obstetrics History Last Filed Vital Signs Vital Sign Reading Time Taken Comments Blood Pressure 148/66 06/12/2024 11:00 AM CURB ATTENDANT Pulse 65 06/12/2024 11:00 AM CURB ATTENDANT Temperature 36.3 C (97.4 F) 06/12/2024 11:00 AM CURB ATTENDANT Respiratory Rate 18 06/12/2024 11:00 AM CURB ATTENDANT Oxygen Saturation 98% 06/12/2024 11:00 AM CURB ATTENDANT Inhaled Oxygen Concentration - - Weight 113.4 kg (250 lb) 06/12/2024 11:00 AM CURB ATTENDANT Height 190.5 cm (6' 3) 06/12/2024 11:00 AM CURB ATTENDANT Body Mass Index 31.25 06/12/2024 11:00 AM CURB ATTENDANT Plan of Treatment Health Maintenance Due Date [...] Risk Assessment 10/30/2021 10/30/2020 Influenza Vaccine (#1) 2025 0, 05/30/2019, 04/30/2018, Additional history exists Colon Cancer Screening-Colonoscopy 08/17/2029 08/17/2019 Colon Cancer Screening-CT Colonography Discontinued 08/17/2019 Colon Cancer Screening-DNA Stool Discontinued 08/17/19 Colon Cancer Screening-FIT Discontinued 08/17/2019 Colon Cancer Screening-Sigmoidoscopy Discontinued 08/17/2019 Medical Devices Implanted Type Area User Experience Architect Device Identifier Shelf Expiration Date Model / Serial / Lot [employer] [id number] Pal[place]os R High Viscosity Cement 40gm Bone Green - [id number] Implanted:Qty: 2 on 10/28/2020 by Stanton Multani Jr., MD at [facility] Right: Knee [employer] [id number] 11/05/2022 [id number] / / [id number] [employer] [id number] Attune 5mm Cruciate Retaining Fix Bearing Knee 6 Insert Tibial - [id number] Implanted:Qty: 1 on 10/28/2020 by Stanton Multani Jr., MD at [facility] Right: Knee [employer] [id number] 10/05/2022 [id number] / / [id number] [employer] [id number] Attune 38mm Cemented Medialize Knee Dome Patellar Aox Sterile - [id number] Implanted:Qty: 1 on 10/28/2020 by Stanton Multani Jr., MD at [facility] Right: Knee [employer] [id number] 03/07/2025 [id number] / / [id number] [employer] [id number] Attune Cruciate Retain Cementless Knee Right 6 Component Femoral - [id number] Implanted:Qty: 1 on 10/28/2020 by Stanton Multani Jr., MD at [facility] Right: Knee [employer] [id number] 06/07/2029 [id number] / / [id number] [employer] [id number] Attune S+ Cement Fix Bearing Knee 7 Baseplate Tibial - [id number] Implanted:Qty: 1 on 10/28/2020 by Stanton Multani Jr., MD at [facility] Right: Knee [employer] [id number] 02/05/2028 [id number] / / [id number] Procedures Procedure Name Priority Date/Time Associated Diagnosis Comments EGFR Routine 10/22/2020 11:29 AM CDT Primary osteoarthritis of knees, bilateral HEMOGLOBIN A1C Routine 10/22/2020 11:29 AM CDT Preop testing COLONOSCOPY 08/17/2019 8:27 AM CURB ATTENDANT from Last 3 Months or Most Recently Relevant to Health Maintenance Results * eGFR (10/22/2020 11:29 AM CDT) eGFR 98 mL/min/1.7 3 m2 MARIAH Comment: Interpretive Data Reference Interval Normal >/= [...] Ritter MD LAB BLOOD ORDERABLES Final Result MARIAH EMANUEL [address] [facility] [place] [address] * (ABNORMAL) Hemoglobin A1c (10/22/2020 11:29 AM CDT) Hgb A1C 6.2(H) 4.0 - 5.6 % MARIAH Estimated Average Glucose 131 mg/dL MARIAH Comment: The ADA recommends reporting an estimated Average Glucose (eAG) with all Hemoglobin A1c results using the equation derived from a study of 507 normal and diabetic adults. Minority populations were underrepresented and children were not included. (Diabetes Care 31:1439-5227, 2008). The eAG is not equivalent to a fasting glucose. Blood specimen (specimen) 10/22/2020 11:29 AM CDT 10/22/2020 11:37 AM CDT Stanton Multani Jr., MD LAB BLOOD ORDERABLE S Final Result Performing Organization Address [facility] Phone Number MARIAH EMANUEL [address] [place] [address] * COLONOSCOPY (08/17/2019 8:27 AM CURB ATTENDANT) Anatomical Region Laterality Modality Other Narrative Procedure Note Reji Bradley MD - 08/17/2019 8:27 AM CST [facility] Patient Name: Julian Schuler Procedure Date: 08/17/2019 8:27 AM Date of : 1950 Admit Type: Outpatient Age: 69 Gender: Male Attending MD: Reji Bradley M.D. Room: [facility] ENDOSCOPY ROOM 2 Note Status: Finalized Patient [...] The scopewas passed under direct vision. The [id number] was introduced through the anus andadvanced to [...] 8:27 AM Procedure Code(s): --- Professional --- 97485, Colonoscopy, flexible; with removal of tumor(s), polyp(s), or other lesion(s) by hot biopsy forceps Diagnosis Code(s): --- Professional --- K57.30, Diverticulosis of large intestine without perforation orabscess without bleeding D12.5, Benign neoplasm of sigmoid colon K62.1, Rectal polyp K64.9, Unspecified hemorrhoids Z12.11, Encounter for screening for malignant neoplasm of colon CPT copyright 2017 [employer] [employer]. All rights reserved. The codes documented in this report are preliminary and upon telecommunications consultant reviewmay be revised to meet current compliance requirements. Recognized by the [place] [employer] G[employer] for promoting quality in endoscopy Reji Bradley MD ENDOSCOPY PROCEDURES Final Re sult from Last 3 Months or Most Recently Relevant to Health Maintenance Insurance MEDICARE COMMERCIAL GENERIC MEDICARE COMMERCIAL GENERIC MEDICARE Advance Directives For more information, please contact: [phone] * Full Code (Latest Code Status on File) Date Activated Date Inactivated Comments 10/28/2020 3:22 PM 10/30/2020 8:05 PM * Full Code Date Activated Date Inactivated Comments 08/17/2019 7:57 AM 08/17/2019 2:34 PM * Full Code Date Activated Date Inactivated Comments 08/17/2019 7:57 AM 08/17/2019 7:57 AM Care Teams Inventory Control/Shipping Receiving Relationship Specialty [place] [address] [address] [facility] [address] [place] [address] PCP - General 10/08/16
--- OUTSIDE RECORDS SUMMARY | 2025-03-03 12:36 | XMS_ITS | Clinical Summary ---
Author Organization [facility] [employer] Address [address] [place] [address] Care Team Providers Care Zoning Technician Name Role Phone Sudhir Gandhi MD Primary Care Provider [phone] Source Comments [facility],non-owned Affiliates and Associated Physician Practices is amultiple site organization consisting of ambulatory clinics and hospital sitesin [place], [place], [place] and [place]. This disclosure is being madepursuant to the Care Everywhere program and may not contain all information available regarding this patient. Last updated 18.[facility] [employer] Allergies Active Allergy Reactions Criticality Noted Date Comments Cortisone Unknown High 04/12/2012 Pain all over and chest pain. Social History Tobacco Use Types Packs/Day Years Used Date Smoking Tobacco: Never Assessed Sex and Gender Information Value Date Recorded Sex Assigned at Not on file Legal Sex Male 1:38 PM TUBE PUSHER Gender Identity Not on file Sexual Orientation [...] VACCINE (1 of 2) 2000 COVID-19 VACCINE (1 - 2023-2 5 season) 2024 DEPRESSION SCREENING 08/08/2024 INFLUENZA VACCINE (#1) 2025 Respiratory Syncytial Virus (RSV) Vaccine Pt: [...] age to complete this topic Care Teams Zoning Technician Relationship Specialty [place] [address] [facility] [place] [address] PCP - General Internal Medicine 10/25/17
--- OUTSIDE RECORDS SUMMARY | 2025-03-03 12:36 | XMS_ITS | Patient Health Record ---
Author Organization [facility] Address [address] [address] Care Team Providers Care Silk Spooler Name Role Phone SHENG DOWLING Unavailable [phone] Reason For Referral No Information Plan Of Treatment No Information Insurance Providers Payer Name Payer Address Payer Phone Subscriber Number Group Number Insured Name Patient Relationship to Insured Coverage Start Date Coverage End Date [facility] [id number] [place], [place] [id number] Matt Schuler Self - patient is the insured 0
--- OUTSIDE RECORDS SUMMARY | 2025-03-03 12:36 | XMS_ITS | Referral Summary ---
Author Organization [facility] Address [address] [place] [address] Care Team Providers Care Turn Out Name Role Phone Sudhir Frazier MD Primary [...] (07/30/2019): Added automatically from request for surgery [id number] Cardiovascular symptoms 03/14/2014 Diabetes mellitus, type II [...] often do you attend chur ch or synagogue services? More than 4 times per year 10/29/2020 Do you belong to any clubs o r organizations such as protestant groups, unions, fraternal or athletic groups, or [...] place to sleep or slept in a group home (including now)? No 10/29/2020 Personal Safety Answer Date Recorded Have you ever been in or are you currently in a harmful physical or emotional relationship or is someone making you feel afraid or unsafe? Denies 06/12/2024 Sex and Gender Information Value Date Recorded Sex Assigned at Not on file Legal Sex Male 9:[address] RESEARCHER Gender Identity Male 10/17/2020 4:[address] RESEARCHER Sexual Orientation Not on file Last Filed Vital Signs Vital Sign Reading Time Taken Comments Blood Pressure 148/66 06/12/2024 11:[address] RESEARCHER Pulse 65 06/12/2024 11:[address] RESEARCHER Temperature 36.3 C (97.4 F) 06/12/2024 11:[address] RESEARCHER Respiratory Rate 18 06/12/2024 11:[address] RESEARCHER Oxygen Saturation 98% 06/12/2024 11:[address] RESEARCHER Inhaled Oxygen Concentration - - Weight 113.4 kg (250 lb) 06/12/2024 11:[address] RESEARCHER Height 190.5 cm (6' 3) 06/12/2024 11:[address] RESEARCHER Body Mass Index 31.25 06/12/2024 11:[address] RESEARCHER Plan of Treatment Not on file Medical Devices Implanted Type Area Keg Header Device Identifier Shelf Expiration Date Model / Serial / Lot [employer] [id number] Palacos R High Viscosity Cement 40gm Bone Green - [id number] Implanted:Qty: 2 on 10/28/2020 by Stanton Multani Jr., MD at [facility] Right: Knee [employer] [id number] 11/05/2022 [id number] / / [id number] [employer] [id number] Attune 5mm Cruciate Retaining Fix Bearing Knee 6 Insert Tibial - [id number] Implanted:Qty: 1 on 10/28/2020 by Stanton Multani Jr., MD at [facility] Right: Knee [employer] [id number] 10/05/2022 [id number] / / [id number] [employer] [id number] Attune 38mm Cemented Medialize Knee Dome Patellar Aox Sterile - [id number] Implanted:Qty: 1 on 10/28/2020 by Stanton Multani Jr., MD at [facility] Right: Knee [employer] [id number] 03/07/2025 [id number] / / [id number] [employer] [id number] Attune Cruciate Retain Cementless Knee Right 6 Component Femoral - [id number] Implanted:Qty: 1 on 10/28/2020 by Stanton Multani Jr., MD at [facility] Right: Knee [employer] [id number] 06/07/2029 [id number] / / [id number] [employer] [id number] Attune S+ Cement Fix Bearing Knee 7 Baseplate Tibial - [id number] Implanted:Qty: 1 on 10/28/2020 by Stanton Multani Jr., MD at [facility] Right: Knee [employer] [id number] 02/05/2028 [id number] / / [id number] Procedures Procedure Name Priority Date/Time Associated Diagnosis Comments EGFR Routine 10/22/2020 11:29 AM CDT Primary osteoarthritis of knees, bilateral HEMOGLOBIN A1C Routine 10/22/2020 11:29 AM CDT Preop testing COLONOSCOPY 08/17/2019 8:[address] RESEARCHER from Last 3 Months or Most Recently [...] BLOOD ORDERABLES Final Result Performing Organization Address [facility] Co de Phone Number MARIAH ADELFO [address] [place] [address] * (ABNORMAL) Hemoglobin A1c (10/22/2020 11:29 AM CDT) Hgb A1C 6.2(H) 4.0 - 5.6 % MARIAH Estimated Average Glucose 131 mg/dL MARIAH EMANUEL Comment: The ADA recommends reporting an estimated Average Glucose (eAG) with all Hemoglobin A1c results using the equation derived from a study of 507 normal and diabetic adults. Minority populations were underrepresented and children were not included. (Diabetes Care 31:0338-1328, 2008). The eAG is not equivalent to a fasting glucose. Blood specimen (specimen) 10/22/2020 11:29 AM CDT 10/22/2020 11:37 AM CDT us Stanton Multani Jr., MD LAB BLOOD ORDERABLE S Final Result Performing Organization Address City/[facility]/ZIP Co de Phone Number MARIAH ADELFO [address] [address] [place], [place] [id number] * COLONOSCOPY (08/17/2019 8:[address] RESEARCHER) Anatomical Region Laterality Modality Other Narrative Procedure Note Reji Bradley MD - 08/17/2019 8:27 AM CST [facility] Patient Name: Julian Schuler Procedure Date: 08/17/2019 8:27 AM Date of : 1950 Admit Type: Outpatient Age: 69 Gender: Male Attending MD: Reji Bradley M.D. Room: [facility] ENDOSCOPY ROOM 2 Note Status: Finalized Patient [...] The scopewas passed under direct vision. The [id number] was introduced through the anus andadvanced to [...] 8:27 AM Procedure Code(s): --- Professional --- 36361, Colonoscopy, flexible; with removal of tumor(s), polyp(s), or other lesion(s) by hot biopsy forceps Diagnosis Code(s): --- Professional --- K57.30, Diverticulosis of large intestine without perforation orabscess without bleeding D12.5, Benign neoplasm of sigmoid colon K62.1, Rectal polyp K64.9, Unspecified hemorrhoids Z12.11, Encounter for screening for malignant neoplasm of colon CPT copyright 2017 [employer] [employer]. All rights reserved. The codes documented in this report are preliminary and upon radiological engineer reviewmay be revised to meet current compliance requirements. Recognized by the [place] [employer] for promoting quality in endoscopy Reji Bradley MD ENDOSCOPY PROCEDURES Final Re sult from Last 3 Months or Most Recently Relevant to Health Maintenance [place] [address] [facility]CIAL [facility] MEDICARE COMMERCIAL GENERIC COMMERCIAL GENERIC [place] [address] Advance Directives For more information, please contact: [phone] * Full Code (Latest Code Status on File) Date Activated Date Inactivated Comments 10/28/2020 3:22 PM 10/30/2020 8:05 PM * Full Code Date Activated Date Inactivated Comments 08/17/2019 7:57 AM 08/17/2019 2:34 PM * Full Code Date Activated Date Inactivated Comments 08/17/2019 7:57 AM 08/17/2019 7:57 AM Care Teams Turn Out Relationship Specialty [place] [address] [address] [facility] [address] [place] [address] PCP - General 10/08/16
== END 2025-03-03 12:34 | disposition home or self-care (01) ==
PROVIDERS: PCP Internal Medicine Geriatric Medicine; Visit Provider Otolaryngology
DX: D33.3 Benign neoplasm of cranial nerves (principal); H90.6 Mixed conductive and sensorineural hearing loss, bilateral
CPT/HCPCS: 70553; A9577

== ENCOUNTER 2025-03-29 13:01 | Outpatient (CLI) | payer MEDICARE, SELFPAY ==
--- OUTSIDE RECORDS SUMMARY | 2025-03-29 13:06 | XMS_ITS | Patient Health Record ---
Author Organization [facility] Address [address] [address] Care Team Providers Care Leaf Sticker Name Role Phone SHENG DOWLING Unavailable [phone] Reason For Referral No Information Plan Of Treatment No Information Insurance Providers Payer Name Payer Address Payer Phone Subscriber Number Group Number Insured Name Patient Relationship to Insured Coverage Start Date Coverage End Date [facility] [address] [place], [place] [id number] Matt Schuler Self - patient is the insured 0
--- OUTSIDE RECORDS SUMMARY | 2025-03-29 13:06 | XMS_ITS | Clinical Summary ---
Author Organization [facility] Address [address] [place] [address] Care Team Providers Care Health Care Coordinator Name Role Phone Sudhir Frazier MD Primary [...] (07/30/2019): Added automatically from request for surgery [id number] Cardiovascular symptoms 03/14/2014 Diabetes mellitus, type II 03/14/2014 Overview (11/12/2020): Dx updated per 2019 IMO Load Hypercholesterolemia 03/14/2014 Dyspnea on exertion 03/14/2014 Arteriosclerosis of coronary artery 10/19/2012 Morbid obesity 10/19/2012 Angina at rest 08/30/2012 Diabetic polyneuropathy 04/12/2012 Overview (11/12/2020): Dx updated per 2018 IMO Load Ingrowing nail 04/12/2012 Encounters Date Type Department Care Team Description 03/25/2025 10:20 AM CDT - 03/25/2025 11:59 PM CDT Hospital Encounter [facility] [address] [place] [id number] Pain Discharge Disposition: Discharge to home or self care from Last 3 Months Immunizations Immunization Administration Dates Next Due PPD TEST 10/22/2022 Surgical History Surgery Date Site/Laterality Comments COLONOSCOPY 03/08/2010 - 04/07/2010 LUMBAR DISCECTOMY CATARACT EXTRACTION W/ INTRAOCULAR LENS IMPLANT Bilateral JOINT REPLACEMENT KNEE SURGERY 10/28/2020 Right Right total Knee Medical History Medical History Date Comments Coronary artery disease Hypertension Type 2 diabetes mellitus Arthritis Sleep apnea Tachycardia Family History Medical History Relation Name Comments Heart disease Father Cancer Mother Relation Name Status Comments Father Mother Social History Tobacco Use Types Packs/Day Years Used Date Smoking Tobacco: Never Smokeless Tobacco: Never Social Connection and Isolation Panel Answer Date Recorded In a typical week, how many times do you talk on the phone with family, friends, or neighbors? More than three times a week 10/29/2020 How often do you get togethe r with friends or relatives? More than three times a week 10/29/2020 How often do you attend chur or yarsanism services? More than 4 times per year [...] place to sleep or slept in a snf (including now)? No 10/29/2020 Personal Safety Answer Date Recorded Have you ever been in or are you currently in a harmful physical or emotional relationship or is someone making you feel afraid or unsafe? Denies 06/12/2024 Sex and Gender Information Value Date Recorded Sex Assigned at Not on file Legal Sex Male 9:09 AM MEDICAL CHARGE ENTRY SPECIALIST Gender Identity Male 10/17/2020 4:40 PM MEDICAL CHARGE ENTRY SPECIALIST Sexual Orientation Not on file Obstetrics History Last Filed Vital Signs Vital Sign Reading Time Taken Comments Blood Pressure 148/66 06/12/2024 11:00 AM MEDICAL CHARGE ENTRY SPECIALIST Pulse 65 06/12/2024 11:00 AM MEDICAL CHARGE ENTRY SPECIALIST Temperature 36.3 C (97.4 F) 06/12/2024 11:00 AM MEDICAL CHARGE ENTRY SPECIALIST Respiratory Rate 18 06/12/2024 11:00 AM MEDICAL CHARGE ENTRY SPECIALIST Oxygen Saturation 98% 06/12/2024 11:00 AM MEDICAL CHARGE ENTRY SPECIALIST Inhaled Oxygen Concentration - - Weight 113.4 kg (250 lb) 06/12/2024 11:00 AM MEDICAL CHARGE ENTRY SPECIALIST Height 190.5 cm (6' 3) 06/12/2024 11:00 AM MEDICAL CHARGE ENTRY SPECIALIST Body Mass Index 31.25 06/12/2024 11:00 AM MEDICAL CHARGE ENTRY SPECIALIST Plan of Treatment Health Maintenance Due Date [...] Discontinued 08/17/2019 Medical Devices Implanted Type Area Labor Expediter Device Identifier Shelf Expiration Date Model / Serial / Lot [employer] [id number] Palacos R High Viscosity Cement 40gm Bone Green - [id number] Implanted:Qty: 2 on 10/28/2020 by Stanton Multani Jr., MD at [facility] Right: Knee [employer] [id number] 11/05/2022 [id number] / / [id number] [employer] [id number] Attune 5mm Cruciate Retaining Fix Bearing Knee 6 Insert Tibial - [id number] Implanted:Qty: 1 on 10/28/2020 by Stanton Multani Jr., MD at [facility] Right: Knee [employer] [id number] 10/05/2022 [id number] / / [id number] [employer] [id number] Attune 38mm Cemented Medialize Knee Dome Patellar Aox Sterile - [id number] Implanted:Qty: 1 on 10/28/2020 by Stanton Multani Jr., MD at [facility] Right: Knee [employer] [id number] 03/07/2025 [id number] / / [id number] [employer] [id number] Attune Cruciate Retain Cementless Knee Right 6 Component Femoral - [id number] Implanted:Qty: 1 on 10/28/2020 by Stanton Multani Jr., MD at [facility] Right: Knee [employer] [id number] 06/07/2029 [id number] / / [id number] [employer] [id number] Attune S+ Cement Fix Bearing Knee 7 Baseplate Tibial - [id number] Implanted:Qty: 1 on 10/28/2020 by Stanton Multani Jr., MD at [facility] Right: Knee [employer] [id number] 02/05/2028 [id number] / / [id number] Procedures Procedure Name Priority Date/Time Associated Diagnosis Comments XR KNEE LEFT 4 OR MORE VIEWS Schedule Routine, Read Routine (OP Routine) 03/25/2025 10:39 AM CDT Pain EGFR Routine 10/22/2020 11:29 AM CDT Primary osteoarthritis of knees, bilateral HEMOGLOBIN A1C Routine 10/22/2020 11:29 AM CDT Preop testing COLONOSCOPY 08/17/2019 8:27 AM MEDICAL CHARGE ENTRY SPECIALIST from Last 3 Months or Most Recently Relevant to Health Maintenance Results * XR Knee Left 4 or More Views (03/25/2025 10:39 AM CDT) Anatomical Region Laterality Modality Lower Extremities, Knee Left Computed Radiography 03/25/2025 7:54 PM CDT Narrative 03/25/2025 7:55 PM CDT EXAM DESCRIPTION: 1. XR KNEE LEFT 4 OR MORE VIEWS REASON FOR STUDY: PAIN Complaints of Chronic L knee pain. Pain mainly all over L knee. Hx of injury to L knee x 40 years ago. No prior surgery to L knee. FINDINGS: Four views submitted with comparison 10/20/2020. No acute fracture. Moderate to severe medial and patellofemoral predominant tricompartmental left knee osteoarthritis. Moderate-sized knee effusion. Chondrocalcinosis, loose bodies, and extensor mechanism enthesophyte noted. IMPRESSION: 1. Moderate to severe medial and patellofemoral predominant tricompartmental left knee osteoarthritis. 2. Moderate-sized left knee effusion. THIS IS AN ELECTRONICALLY VERIFIED FINAL REPORT 03/25/2025 7:55 PM - Electronically signed by Gunner Poole M.D. MF: [email or web address] Report ID: [id number] Reading Location: [id number] Procedure Note Gunner Poole MD - 03/25/2025 EXAM DESCRIPTION: 1. XR KNEE LEFT 4 OR MORE VIEWS REASON FOR STUDY: PAIN Complaints of Chronic L knee pain. Pain mainly all over L knee. Hx of injury to L knee x 40 years ago. No prior surgery to L knee. FINDINGS: Four views submitted with comparison 10/20/2020. No acute fracture. Moderate to severe medial and patellofemoralpredominant tricompartmental left knee osteoarthritis. Moderate-sized knee effusion. Chondrocalcinosis, loose bodies, and extensor mechanism enthesophytenoted. IMPRESSION: 1. Moderate to severe medial and patellofemoral predominanttricompartmental left knee osteoarthritis. 2. Moderate-sized left knee effusion. THIS IS AN ELECTRONICALLY VERIFIED FINAL REPORT 03/25/2025 7:55 PM - Electronically signed by Gunner Poole M.D. MF: [email or web address] Report ID: [id number] Reading Location: [id number] Sudhir Frazier MD IMG XR PROCEDURES Final Result * eGFR (10/22/2020 11:29 AM CDT) eGFR [...] BLOOD ORDERABLES Final Result Performing Organization Address [facility] Co de Phone Number MARIAH EMANUEL [address] [place] [address] * (ABNORMAL) Hemoglobin A1c (10/22/2020 11:29 AM CDT) Hgb A1C 6.2(H) 4.0 - 5.6 % MARIAH Estimated Average Glucose 131 mg/dL MARIAH Comment: The ADA recommends reporting an estimated Average Glucose (eAG) with all Hemoglobin A1c results using the equation derived from a study of 507 normal and diabetic adults. Minority populations were underrepresented and children were not included. (Diabetes Care 31:6498-4020, 2008). The eAG is not equivalent to a fasting glucose. Blood specimen (specimen) 10/22/2020 11:29 AM CDT 10/22/2020 11:37 AM CDT us Stanton Multani Jr., MD LAB BLOOD ORDERABLE S Final Result Performing Organization Address [facility] Co de Phone Number MARIAH ADELFO [address] [facility] [place], [place] [id number] * COLONOSCOPY (08/17/2019 8:27 AM MEDICAL CHARGE ENTRY SPECIALIST) Anatomical Region Laterality Modality Other Narrative Procedure Note Reji Bradley MD - 08/17/2019 8:27 AM CST [facility] Patient Name: Julian Schuler Procedure Date: 08/17/2019 8:27 AM Date of : 1950 Admit Type: Outpatient Age: 69 Gender: Male Attending MD: Reji Bradley M.D. Room: [facility] END[facility]OM 2 Note Status: Finalized [...] The scopewas passed under direct vision. The [id number] was introduced through the anus andadvanced to [...] 8:27 AM Procedure Code(s): --- Professional --- 20080, Colonoscopy, flexible; with removal of tumor(s), polyp(s), or other lesion(s) by hot biopsy forceps Diagnosis Code(s): --- Professional --- K57.30, Diverticulosis of large intestine without perforation orabscess without bleeding D12.5, Benign neoplasm of sigmoid colon K62.1, Rectal polyp K64.9, Unspecified hemorrhoids Z12.11, Encounter for screening for malignant neoplasm of colon CPT copyright 2017 [employer]. All rights reserved. The codes documented in this report are preliminary and upon door serviceman reviewmay be revised to meet current compliance requirements. Recognized by the [employer] for promoting quality in endoscopy Reji Bradley MD ENDOSCOPY PROCEDURES Final Re sult from Last 3 Months or Most Recently Relevant to Health Maintenance Insurance MEDICARE COMMERCIAL [facility] MEDICARE COMMERCIAL GENERIC COMMERCIAL GENERIC MEDICARE MEDICARE Advance Directives For more information, please contact: [phone] * Full Code (Latest Code Status on File) Date Activated Date Inactivated Comments 10/28/2020 3:22 PM 10/30/2020 8:05 PM * Full Code Date Activated Date Inactivated Comments 08/17/2019 7:57 AM 08/17/2019 2:34 PM * Full Code Date Activated Date Inactivated Comments 08/17/2019 7:57 AM 08/17/2019 7:57 AM Care Teams Health Care Coordinator Relationship Specialty [place] [address] [facility] [address] [place] [address] PCP - General 10/08/16
--- OUTSIDE RECORDS SUMMARY | 2025-03-29 13:06 | XMS_ITS | Clinical Summary ---
Author Organization [facility] Address [address] [place] [address] Care Team Providers Care Configuration Management Consultant Name Role Phone Sudhir Gandhi MD Primary Care Provider [phone] Source Comments [facility],non-owned Affiliates and Associated Physician Practices is amultiple site organization consisting of ambulatory clinics and hospital sitesin [place], [place], [place] and [place]. This disclosure is being madepursuant to the Care Everywhere program and may not contain all information available regarding this patient. Last updated 18.[facility] Allergies Active Allergy Reactions Criticality Noted Date Comments Cortisone Unknown High 04/12/2012 Pain all over and chest pain. 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
--- NOTE | 2025-03-29 13:14 | ECG_ITS ---
Test Date: 2025-03-29 13:23:46 Measurements Intervals [place] Rate: 60 P: 69 [place]: 186 QRS: -3 QRSD: 100 T: -3 QT: 381 QTc: 381 Interpretive Statements SINUS RHYTHM BORDERLINE ST-T WAVE ABNORMALITY- INFERIOR LEADS BASELINE ARTIFACT- II, III, AVR, AVL, AVF BORDERLINE ECG No previous ECG available for comparison Electronically Signed On 03-29-2025 13:40:23 CDT by Stanley Argueta D.O.
== END 2025-03-29 13:02 | disposition home or self-care (01) ==
PROVIDERS: PCP Internal Medicine Geriatric Medicine; Visit Provider Internal Medicine Geriatric Medicine
DX: Z01.818 Encounter for other preprocedural examination (principal); R94.31 Abnormal electrocardiogram [ECG] [EKG]
CPT/HCPCS: 93005

== ENCOUNTER 2025-06-10 12:07 | Outpatient (CLI) | payer MEDICARE, SELFPAY ==
--- NOTE | ~2025-06-10 | CT_ITS ---
EXAMINATION: CT_LELTCWO_CT DATE: 06/10/2025 12:35 INDICATION: Preoperative planning TECHNIQUE: High resolution computed tomography (CT) of the left lower extremity from the hip through the ankle was performed without intravenous contrast. Additional sagittal and coronal reconstructions were performed. Automated exposure control and iterative reconstruction technique were employed. The dose- length product was 2007.87 mGy-cm. COMPARISON: 03/25/2025 FINDINGS: No fracture or osteonecrosis. 5 mm lateral patellar subluxation. Alignment is otherwise normal. Tricompartmental osteoarthritis at the left knee, severe in the patellofemoral compartment with subarticular cystlike changes at the lateral patellar facet and lateral trochlea. Additional severe osteoarthritis with the severity of joint space narrowing better appreciated on the prior weightbearing radiographs with additional subarticular cystlike changes at the medial margin of the medial tibial plateau and weightbearing medial femoral condyle. Chondral calcinosis knee is appreciated lung the lateral meniscus with at least mild osteoarthritis in the lateral compartment. Loose osteochondral body in the r ecess anterior to the intercondylar notch. Additional mild polyarticular osteoarthritis at the left hip, ankle and multiple joints in the left foot. Physiologic amount fluid in the joint spaces with no left hip, knee or ankle joint effusion. Prominent fatty atrophy of the musculature of the left foot as well as the soleus and medial head of the gastrocnemius muscles. Mild fatty atrophy of the lateral head of the gastrocnemius muscle. Small fat-containing left inguinal hernia. Visualized portion of the pelvis is otherwise unremarkable with no left pelvic or inguinal lymphadenopathy. IMPRESSION: 1. Chondrocalcinosis and tricompartmental osteoarthritis at the left knee, severe in the medial and patellofemoral compartments. 2. Severe fatty muscular atrophy of the soleus muscle, medial head of the gastrocnemius muscle as well as the intrinsic musculature of the left foot which suggests denervation change of indeterminate etiology. Reviewed, dictated and finalized at location A. GHT CAR LOADER IMPRESSION: 1. Chondrocalcinosis and tricompartmental osteoarthritis at the left knee, micky re in the medial and patellofemoral compartments. 2. Severe fatty muscular atrophy of the soleus muscle, medial head of the gastr ocnemius muscle as well as the intrinsic musculature of the left foot which sug gests denervation change of indeterminate etiology.
--- OUTSIDE RECORDS SUMMARY | 2025-06-10 13:31 | XMS_ITS | Clinical Summary ---
Author Organization [facility] Address [address] [place] [address] Care Team Providers Care Associate Professor Of Musicology Name Role Phone Sudhir Gandhi MD Primary Care Provider [phone] Source Comments [facility],non-owned Affiliates and Associated Physician Practices is amultiple site organization consisting of ambulatory clinics and hospital sitesin [place], [place], [place] and [place]. This disclosure is being madepursuant to the Care Everywhere program and may not contain all information available regarding this patient. Last updated 18.[facility] Allergies Active Allergy Reactions Criticality Noted Date Comments Cortisone Unknown High 04/12/2012 Pain all over and chest pain. 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
--- OUTSIDE RECORDS SUMMARY | 2025-06-10 13:31 | XMS_ITS | Clinical Summary ---
Author Organization [facility] Address [address] [place] [address] Care Team Providers Care Curing Pickling Packer Name Role Phone Sudhir Frazier MD [...] (07/30/2019): Added automatically from request for surgery [id number] Cardiovascular symptoms 03/14/2014 Diabetes mellitus, type II [...] - 03/25/2025 11:59 PM CDT Hospital Encounter [facility] [address] [place] [address] Pain Discharge Disposition: Discharge to home or [...] How often do you attend chur or anglican services? More than 4 times per year 10/29/2020 Do you belong to any clubs o r organizations such as baptism groups, unions, fraternal or athletic groups, or [...] place to sleep or slept in a alf (including now)? No 10/29/2020 Personal Safety Answer Date Recorded Have you ever been in or are you currently in a harmful physical or emotional relationship or is someone making you feel afraid or unsafe? Denies 06/12/2024 Sex and Gender Information Value Date Recorded Sex Assigned at Not on file Legal Sex Male 9:09 AM MOLDER SETTER Gender Identity Male 10/17/2020 4:40 PM MOLDER SETTER Sexual Orientation Not on file Last Filed Vital Signs Vital Sign Reading Time Taken Comments Blood Pressure 148/66 06/12/2024 11:00 AM MOLDER SETTER Pulse 65 06/12/2024 11:00 AM MOLDER SETTER Temperature 36.3 C (97.4 F) 06/12/2024 11:00 AM MOLDER SETTER Respiratory Rate 18 06/12/2024 11:00 AM MOLDER SETTER Oxygen Saturation 98% 06/12/2024 11:00 AM MOLDER SETTER Inhaled Oxygen Concentration - - Weight 113.4 kg (250 lb) 06/12/2024 11:00 AM MOLDER SETTER Height 190.5 cm (6' 3) 06/12/2024 11:00 AM MOLDER SETTER Body Mass Index 31.25 06/12/2024 11:00 AM MOLDER SETTER Plan of Treatment Health Maintenance Due Date [...] Discontinued 08/17/2019 Medical Devices Implanted Type Area Single End Sewer Device Identifier Shelf Expiration Date Model / Serial / Lot [employer] [id number] Palacos R High Viscosity Cement 40gm Bone Green - [id number] Implanted:Qty: 2 on 10/28/2020 by Stanton Multani Jr., MD at [facility] Right: Knee [employer] [id number] 11/05/2022 [id number] / / [id number] [employer] [id number] Attune 5mm Cruciate Retaining Fix Bearing Knee 6 Insert Tibial - [id number] Implanted:Qty: 1 on 10/28/2020 by Stanton Multani Jr., MD at [facility] Right: Knee [employer] [id number] 10/05/2022 [id number] / / [id number] [employer] [id number] Attune 38mm Cemented Medialize Knee Dome Patellar Aox Sterile - [id number] Implanted:Qty: 1 on 10/28/2020 by Stanotn Multani Jr., MD at [facility] Right: Knee [employer] [id number] 03/07/2025 [id number] / / [id number] [employer] [id number] Attune Cruciate Retain Cementless Knee Right 6 Component Femoral - [id number] Implanted:Qty: 1 on 10/28/2020 by Stanton Multani Jr., MD at [facility] Right: Knee [employer] [id number] 06/07/2029 [id number] / / [id number] [employer] [id number] Attune S+ Cement Fix Bearing Knee 7 Baseplate Tibial - [id number] Implanted:Qty: 1 on 10/28/2020 by Stanton Multani Jr., MD at [facility] Right: Knee [employer] [id number] 02/05/2028 [id number] / / [id number] Procedures Procedure Name Priority Date/Time Associated Diagnosis Comments XR KNEE LEFT 4 OR MORE VIEWS Schedule Routine, Read Routine (OP Routine) 03/25/2025 10:39 AM CDT Pain EGFR Routine 10/22/2020 11:29 AM CDT Primary osteoarthritis of knees, bilateral HEMOGLOBIN A1C Routine 10/22/2020 11:29 AM CDT Preop testing COLONOSCOPY 08/17/2019 8:27 AM MOLDER SETTER from Last 3 Months or Most Recently [...] Gunner Poole M.D. MF: KRISTIAN Report ID: [id number] Reading Location: [id number] Procedure Note Gunner Poole MD - 03/25/2025 [...] Gunner Poole M.D. MF: KRISTIAN Report ID: [id number] Reading Location: [id number] Sudhir Frazier MD IMG XR PROCEDURES Final [...] BLOOD ORDERABLES Final Result Performing Organization Address [facility] de Phone Number MARIAH EMANUEL [address] [place], [place] [phone] * (ABNORMAL) Hemoglobin A1c (10/22/2020 11:29 AM CDT) Hgb A1C 6.2(H) 4.0 - 5.6 % MARIAH Estimated Average Glucose 131 mg/dL MARIAH Comment: The ADA recommends reporting an estimated Average Glucose (eAG) with all Hemoglobin A1c results using the equation derived from a study of 507 normal and diabetic adults. Minority populations were underrepresented and children were not included. (Diabetes Care 31:1987-4650, 2008). The eAG is not equivalent to a fasting glucose. Blood specimen (specimen) 10/22/2020 11:29 AM CDT 10/22/2020 11:37 AM CDT us Stanton Multani Jr., MD LAB BLOOD ORDERABLE S Final Result Performing Organization Address [facility] Co de Phone Number MARIAH ADELFO [address] [place], [place] [id number] * COLONOSCOPY (08/17/2019 8:27 AM MOLDER SETTER) Anatomical Region Laterality Modality Other Narrative Procedure Note Reji Bradley MD - 08/17/2019 8:27 AM CST [facility] Patient Name: Julian Schuler Procedure Date: 08/17/2019 8:27 AM Date of : 1950 Admit Type: Outpatient Age: 69 Gender: Male Attending MD: Reji Bradley M.D. Room: [facility] ENDOSCOPY ROOM 2 Note Status: [...] The scopewas passed under direct vision. The [id number] was introduced through the anus andadvanced to [...] 8:27 AM Procedure Code(s): --- Professional --- 21211, Colonoscopy, flexible; with removal of tumor(s), polyp(s), or other lesion(s) by hot biopsy forceps Diagnosis Code(s): --- Professional --- K57.30, Diverticulosis of large intestine without perforation orabscess without bleeding D12.5, Benign neoplasm of sigmoid colon K62.1, Rectal polyp K64.9, Unspecified hemorrhoids Z12.11, Encounter for screening for malignant neoplasm of colon CPT copyright 2017 [place] [employer]. All rights reserved. The codes documented in this report are preliminary and upon medical insurance coder reviewmay be revised to meet current compliance requirements. Recognized by the [place] [employer] Gastrointestinal Endoscopy for promoting quality in endoscopy Reji Bradley MD ENDOSCOPY PROCEDURES Final Re sult from Last 3 Months or Most Recently Relevant to Health Maintenance Insurance MEDICARE COMMERCIAL [facility] MEDICARE COMMERCIAL GENERIC COMMERCIAL GENERIC MEDICARE MEDICARE [facility] MEDICARE SUPPLEMENT Advance Directives For more information, please contact: [phone] * Full Code (Latest Code Status on File) Date Activated Date Inactivated Comments 10/28/2020 3:22 PM 10/30/2020 8:05 PM * Full Code Date Activated Date Inactivated Comments 08/17/2019 7:57 AM 08/17/2019 2:34 PM * Full Code Date Activated Date Inactivated Comments 08/17/2019 7:57 AM 08/17/2019 7:57 AM Care Teams Curing Pickling Packer Relationship Specialty [place] [address] [facility] [address] [place] [address] PCP - General 10/08/16
--- OUTSIDE RECORDS SUMMARY | 2025-06-10 13:31 | XMS_ITS | Patient Health Record ---
Author Organization [facility] Address [address] [place] [address] Care Team Providers Care Log Rider Name Role Phone SHENG DOWLING Unavailable [phone] Reason For Referral No Information Plan Of Treatment No Information Insurance Providers Payer Name Payer Address Payer Phone Subscriber Number Group Number Insured Name Patient Relationship to Insured Coverage Start Date Coverage End Date [facility] [address] [place], [place] [id number] Matt Schuler Self - patient is the insured 0
== END 2025-06-10 12:08 | disposition home or self-care (01) ==
PROVIDERS: PCP Internal Medicine Geriatric Medicine; Visit Provider Orthopaedic Surgery
DX: M17.12 Unilateral primary osteoarthritis, left knee (principal)
CPT/HCPCS: 73700

== ENCOUNTER 2025-07-24 08:05 | Outpatient (CLI) | payer MEDICARE, SELFPAY ==
--- OUTSIDE RECORDS SUMMARY | 2025-07-24 08:22 | XMS_ITS | Patient Health Record ---
Author Organization [facility] Address [address] [place] [address] Care Team Providers Care Keno Writer Name Role Phone SHENG DOWLING Unavailable [phone] Reason For Referral No Information Plan Of Treatment No Information Insurance Providers Payer Name Payer Address Payer Phone Subscriber Number Group Number Insured Name Patient Relationship to Insured Coverage Start Date Coverage End Date [facility] [id number] [place], [place] [id number] Matt Schuler Self - patient is the insured 0
--- OUTSIDE RECORDS SUMMARY | 2025-07-24 08:22 | XMS_ITS | Clinical Summary ---
Author Organization [facility] Address [address] [place] [address] Care Team Providers Care Apartment Rental Clerk Name Role Phone Sudhir Gandhi MD Primary Care Provider [phone] Source Comments [facility],non-owned Affiliates and Associated Physician Practices is amultiple site organization consisting of ambulatory clinics and hospital sitesin [place], [place], [place] and [place]. This disclosure is being madepursuant to the Care Everywhere program and may not contain all information available regarding this patient. Last updated 18.[facility] Allergies Active Allergy Reactions Criticality Noted Date Comments Cortisone Unknown High 04/12/2012 Pain all over and chest pain. 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
--- OUTSIDE RECORDS SUMMARY | 2025-07-24 08:22 | XMS_ITS | Clinical Summary ---
Author Organization [facility] Address [address] [place] [address] Care Team Providers Care Nailhead Setter Name Role Phone Sudhir Frazier MD Primary [...] (07/30/2019): Added automatically from request for surgery [id number] Cardiovascular symptoms 03/14/2014 Diabetes mellitus, type II [...] often do you attend chur ch or restoration services? More than 4 times per year 10/29/2020 Do you belong to any clubs o r organizations such as mosque groups, unions, fraternal or athletic groups, or [...] place to sleep or slept in a long term (including now)? No 10/29/2020 Personal Safety Answer Date Recorded Have you ever been in or are you currently in a harmful physical or emotional relationship or is someone making you feel afraid or unsafe? Denies 06/12/2024 Sex and Gender Information Value Date Recorded Sex Assigned at Not on file Legal Sex Male 9:09 AM BAR PILOT Gender Identity Male 10/17/2020 4:40 PM BAR PILOT Sexual Orientation Not on file Last Filed Vital Signs Vital Sign Reading Time Taken Comments Blood Pressure 148/66 06/12/2024 11:00 AM BAR PILOT Pulse 65 06/12/2024 11:00 AM BAR PILOT Temperature 36.3 C (97.4 F) 06/12/2024 11:00 AM BAR PILOT Respiratory Rate 18 06/12/2024 11:00 AM BAR PILOT Oxygen Saturation 98% 06/12/2024 11:00 AM BAR PILOT Inhaled Oxygen Concentration - - Weight 113.4 kg (250 lb) 06/12/2024 11:00 AM BAR PILOT Height 190.5 cm (6' 3) 06/12/2024 11:00 AM BAR PILOT Body Mass Index 31.25 06/12/2024 11:00 AM BAR PILOT Plan of Treatment Health Maintenance Due Date Last Done Comments Albumin Creatinine Ratio, Urine 1950 Depression Screening 1950 Hepatitis C Screening 1950 Dilated Eye Exam 1950 Foot Exam 1950 Lipid Panel 1950 DTaP/Tdap/Td Vaccine (1 - Tdap) 1961 Hepatitis B Screening 1968 Zoster Vaccine (1 of 2) 2000 Abdominal Aortic Aneurysm (A AA) Screen 2015 Well Visit 65+ 2015 Pneumococcal vaccine 65+ [...] Discontinued 08/17/2019 Medical Devices Implanted Type Area Collaborative Teacher Device Identifier Shelf Expiration Date Model / Serial / Lot [employer] [id number] [place] R High Viscosity Cement 40gm Bone Green - [id number] Implanted:Qty: 2 on 10/28/2020 by Stanton Multani Jr., MD at [facility] Right: Knee [employer] [id number] 11/05/2022 [id number] / / [id number] [employer] [id number] Attune 5mm Cruciate Retaining Fix Bearing Knee 6 Insert Tibial - [id number] Implanted:Qty: 1 on 10/28/2020 by Stanton Multani Jr., MD at [facility] Right: Knee [employer] [id number] 10/05/2022 [id number] / / [id number] [employer] [id number] Attune 38mm Cemented Medialize Knee Dome Patellar Aox Sterile - [id number] Implanted:Qty: 1 on 10/28/2020 by Stanton Multani Jr., MD at [facility] Right: Knee [employer] [id number] 03/07/2025 [id number] / / [id number] [employer] [id number] Attune Cruciate Retain Cementless Knee Right 6 Component Femoral - [id number] Implanted:Qty: 1 on 10/28/2020 by Stanton Multani Jr., MD at [facility] Right: Knee [employer] [id number] 06/07/2029 [id number] / / [id number] [employer] [id number] Attune S+ Cement Fix Bearing Knee 7 Baseplate Tibial - [id number] Implanted:Qty: 1 on 10/28/2020 by Stanton Multani Jr., MD at [facility] Right: Knee [employer] [id number] 02/05/2028 [id number] / / [id number] Procedures Procedure Name Priority Date/Time Associated Diagnosis Comments EGFR Routine 10/22/2020 11:29 AM CDT Primary osteoarthritis of knees, bilateral HEMOGLOBIN A1C Routine 10/22/2020 11:29 AM CDT Preop testing COLONOSCOPY 08/17/2019 8:27 AM BAR PILOT from Last 3 Months or Most Recently [...] 11:29 AM CDT 10/22/2020 11:46 AM CDT Leroy Ritter MD LAB BLOOD ORDERABLES Final Result MARIAH EMANUEL [address] [place] [address] * (ABNORMAL) Hemoglobin A1c (10/22/2020 11:29 AM CDT) Hgb A1C 6.2(H) 4.0 - 5.6 % MARIAH Estimated Average Glucose 131 mg/dL MARIAH Comment: The ADA recommends reporting an estimated Average Glucose (eAG) with all Hemoglobin A1c results using the equation derived from a study of 507 normal and diabetic adults. Minority populations were underrepresented and children were not included. (Diabetes Care 31:8992-3954, 2008). The eAG is not equivalent to a fasting glucose. Blood specimen (specimen) 10/22/2020 11:29 AM CDT 10/22/2020 11:37 AM CDT Stanton Multani Jr., MD LAB BLOOD ORDERABLE S Final Result Performing Organization Address [facility] Phone Number MARIAH EMANUEL [address] [place] [address] * COLONOSCOPY (08/17/2019 8:27 AM BAR PILOT) Anatomical Region Laterality Modality Other Narrative Procedure Note eRji Bradley MD - 08/17/2019 8:27 AM CST [facility] Patient Name: Julian Schuler Procedure Date: 08/17/2019 8:27 AM Date of : 1950 Admit Type: Outpatient Age: 69 Gender: Male Attending MD: Reji Bardley M.D. Room: [facility] ENDOSCOPY ROOM 2 Note Status: Finalized Patient Profile: Refer to note in patient chart for documentation of history and physical. Procedure: Colonoscopy Indications: Screening for colorectal malignant neoplasm, Last colonoscopy: March 2010 Referring MD: Sudhir Frazier M.D. Providers: Reji Bradlye M.D. Impression: - Hemorrhoids found on perianal [...] The scopewas passed under direct vision. The [id number] was introduced through the anus andadvanced to [...] 8:27 AM Procedure Code(s): --- Professional --- 33241, Colonoscopy, flexible; with removal of tumor(s), polyp(s), or other lesion(s) by hot biopsy forceps Diagnosis Code(s): --- Professional --- K57.30, Diverticulosis of large intestine without perforation orabscess without bleeding D12.5, Benign neoplasm of sigmoid colon K62.1, Rectal polyp K64.9, Unspecified hemorrhoids Z12.11, Encounter for screening for malignant neoplasm of colon CPT copyright 2017 [employer]. All rights reserved. The codes documented in this report are preliminary and upon operator vacuum reviewmay be revised to meet current compliance requirements. Recognized by the [employer] for promoting quality in endoscopy Reji Bradley MD ENDOSCOPY PROCEDURES Final Re sult from Last 3 Months or Most Recently Relevant to Health Maintenance Insurance MEDICARE COMMERCIAL GENERIC MEDICARE COMMERCIAL GENERIC MEDICARE MEDICARE [facility] MEDICARE SUPPLEMENT Advance Directives For more information, please contact: [phone] * Full Code (Latest Code Status on File) Date Activated Date Inactivated Comments 10/28/2020 3:22 PM 10/30/2020 8:05 PM * Full Code Date Activated Date Inactivated Comments 08/17/2019 7:57 AM 08/17/2019 2:34 PM * Full Code Date Activated Date Inactivated Comments 08/17/2019 7:57 AM 08/17/2019 7:57 AM Care Teams Nailhead Setter Relationship Specialty [place] [address] [facility] [address] [place] [address] PCP - General 10/08/16
[2025-07-24 09:38] LABS: Hematocrit 43.1 % (42.0-52.0); Hemoglobin 14.7 g/dL (14.0-18.0); Immature Granulocyte Percent A 0.3 % (0-0.5); Lymphocytes Absolute Auto 1.35 K/mm3 (0.9-3.2); Mean Corpuscular HGB Conc 34.1 g/dl (32-36); Mean Corpuscular Hemoglobin 31.4 pg (26-34); Mean Corpuscular Volume 92.1 fl (80-100); Nucleated Red Blood Cells Absolute Auto 0.000 K/mm3 (0.0-0.012); Nucleated Red Blood Cells Perc 0.0 % (0.0-0.2); Platelet Count Result 204 k/mm3 (150-375); Red Blood Count 4.68 M/mm3 (4.6-6.20); White Blood Count 5.8 K/mm3 (4.5-10.0)
[2025-07-24 09:57] LABS: Albumin Level 4.3 g/dL (3.5-5.1)
[2025-07-24 10:00] LABS: Anion Gap 8 mmol/L (4-12); Blood Urea Nitrogen 23 mg/dL (9-20); Calcium 9.9 mg/dL (8.4-10.2); Carbon Dioxide 27 mmol/L (22-30); Chloride 101 mmol/L (98-107); Estimated Glomerular Filt Rate > 60; Glucose 195 mg/dL (65-110); Potassium 4.6 mmol/L (3.4-5.0); Sodium 136 mmol/L (137-145)
[2025-07-24 10:22] LABS: Hemoglobin A1C 6.8 % (<5.7)
[2025-07-24 10:48] LABS: MRSA (PCR) NOT DETECTED (NOT DETECTE)
== END 2025-07-24 08:06 | disposition home or self-care (01) ==
PROVIDERS: Anesthesiology; PCP Internal Medicine Geriatric Medicine; Visit Provider Orthopaedic Surgery
DX: M17.12 Unilateral primary osteoarthritis, left knee (principal); E11.9 Type 2 diabetes mellitus without complications; Z01.818 Encounter for other preprocedural examination
CPT/HCPCS: 36415; 80048; 80307; 82040; 83036; 85025; 87641